=== PATIENT | male | born 1935 | race Caucasian/White ===

== ENCOUNTER 2019-01-28 17:40 | Emergency (ER) | payer MEDICARE ==
[~2019-01-28] VITALS: Ht 188 cm; Wt 74.8 kg
--- OUTSIDE RECORDS SUMMARY | 2019-01-28 17:43 | XMS REPORT | Continuity of Care Document ---
Author Author [facility] Interface Address Unknown Phone Unavailable Problems Problem Status Onset Date Classification Date Reported Comments Source Neuropathy Active Problem 12/27/2018 2.16.840.1.924821.4.391.11.87179 Muscle cramps Active Problem 12/27/2018 2.16.840.1.614417.4.391.11.24419 Hypothyroidism Active Problem 12/27/2018 2.16.840.1.081266.4.391.11.48086 Memory loss Active Problem 12/27/2018 2.16.840.1.672196.4.391.11.23704 Anxiety Active Problem 12/27/2018 2.16.840.1.503845.4.391.11.79750 Myositis Active Problem 12/27/2018 2.16.840.1.723540.4.391.11.14548 Generalized anxiety disorder Active Problem 12/27/2018 2.16.840.1.119168.4.391.11.03143,Charmaine Sutton Benign prostatic hyperplasia with lower urinary tract symptoms Active Problem 12/27/2018 2.16.840.1.915647.4.391.11.31571 Nocturia Active Diagnosis 11/24/2017 2.16.840.1.476032.4.391.11.15666 Mesothelioma Active Problem 12/27/2018 2.16.840.1.027147.4.391.11.38550 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 2.16.840.1.025894.4.391.11.15554 Anorexia Active Problem 12/27/2018 2.16.840.1.696900.4.391.11.49656 Right-sided chest pain Active Diagnosis 08/04/2018 2.16.840.1.549036.4.391.11.95927 Hypoxia Active Diagnosis 01/12/2018 2.16.840.1.024691.4.391.11.57665 Gallstone pancreatitis Active Diagnosis 06/12/2017 2.16.840.1.713285.4.391.11.16380 Chronic constipation Active Diagnosis 05/28/2017 2.16.840.1.189553.4.391.11.49752 Seasonal allergic rhinitis, unspecified trigger Active Diagnosis 01/06/2018 2.16.840.1.244986.4.391.11.57776 Acute respiratory distress Active Diagnosis 01/06/2018 2.16.840.1.540664.4.391.11.57400 Pneumonia of both lower lobes due to infectious organism Active Diagnosis 10/28/2017 2.16.840.1.396512.4.391.11.24956 Acute biliary pancreatitis, unspecified complication status Active Diagnosis 10/28/2017 2.16.840.1.564873.4.391.11.94096 Urinary retention Active Diagnosis 10/28/2017 2.16.840.1.558578.4.391.11.70883 Acute cystitis without hematuria Active Diagnosis 10/28/2017 2.16.840.1.270199.4.391.11.33159 Chronic respiratory failure with hypoxia Active Problem 12/27/2018 2.16.840.1.120009.4.391.11.52022 Loss of weight Active Problem 10/26/2015 Charmaine Sutton Rotator cuff sprain and strain Active Problem 10/26/2015 Charmaine Sutton Muscle weakness Active Problem 10/26/2015 Charmaine Sutton Dementia with Lewy bodies Active Problem 10/26/2015 Charmaine Sutton Anxiety state, unspecified Active Problem 10/26/2015 Charmaine Sutton Mixed hyperlipidemia Active Problem 10/26/2015 Charmaine Sutton Chest pain, other Active Problem 10/26/2015 Charmaine Sutton Neck muscle spasm Active Problem 10/26/2015 Charmaine Sutton Inclusion body myositis Active Problem 10/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 Charmaine Sutton BPH - Hypertrophy of prostate without urinary obstruction and other lower urinary tract symptoms [LUTS] Active Problem 10/26/2015 Charmaine Sutton Diarrhea of presumed infectious origin Active Problem 10/26/2015 Charmaine Sutton Dementia Active Problem 10/26/2015 Charmaine Sutton Malnutrition of moderate degree Active Problem 10/26/2015 Charmaine Sutton Body Mass Index 28.0-28.9, adult Active Problem 10/26/2015 Charmaine Sutton hypothyroidism Active Problem 10/26/2015 Charmaine Sutton Other vitamin B12 deficiency anemia Active Problem 10/26/2015 Charmaine Sutton Allergic rhinitis, cause unspecified Active Problem 10/26/2015 Charmaine Sutton Abdominal pain, left lower quadrant Active Problem 10/26/2015 Charmaine Sutton Generalized anxiety disorder Active Problem 10/26/2015 Charmaine Sutton Infectious colitis, enteritis, and gastroenteritis Active Problem 10/26/2015 Charmaine Sutton Other anxiety states Active Problem 10/26/2015 Charmaine Sutton 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 Charmaine Sutton 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 10/26/2015 Charmaine Sutton Hypothyroid Active Diagnosis 10/26/2015 Charmaine Sutton Dementia Active Diagnosis 10/26/2015 Charmaine Sutton Myositis associated antibody positive Active Diagnosis 10/26/2015 Charmaine Sutton Rotator cuff syndrome of shoulder and allied disorders Active Problem 10/26/2015 Charmaine Sutton Neck pain Active Problem 10/26/2015 Charmaine Sutton Environmental allergies Active Problem 12/27/2018 2.16.840.1.864113.4.391.11.24351 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, 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 Active Problem 12/27/2018 2.16.840.1.983868.4.391.11.49540 Falls frequently Active Problem 12/27/2018 2.16.840.1.235059.4.391.11.72490 Mixed stress and urge urinary incontinence Active Problem 12/27/2018 2.16.840.1.842508.4.391.11.86783 Muscle weakness Active Diagnosis 10/15/2018 2.16.840.1.555298.4.391.11.13922 Injury of right shoulder, initial encounter Active Diagnosis 11/18/2018 2.16.840.1.658367.4.391.11.64252 Myositis of left foot, unspecified myositis type Active Diagnosis 10/22/2016 2.16.840.1.240134.4.391.11.03232 Malignant pleural mesothelioma Active Problem 12/27/2018 2.16.840.1.897663.4.391.11.16501 Pre-syncope Active Diagnosis 08/13/2018 2.16.840.1.055648.4.391.11.85237 Fall, initial encounter Active Diagnosis 07/27/2018 2.16.840.1.441130.4.391.11.37060 Medications Medication Details Route Status Patient Instructions Ordering Provider Order Date Source Alprazolam 1 tablet as needed Orally Active 1 MG Orally four times a day (qid) Dereck 11/28/2018 2.16.840.1.202836.4.391.11.84970 Montelukast Sodium 1 tab at bedtime Orally Active 10 mg Orally Once a day Dereck 08/01/2018 2.16.840.1.593229.4.391.11.00109 Tylenol Extra Strength 1 tablet Orally Active 500 mg Orally three times a day (tid) as needed (prn) [facility] 05/22/2018 2.16.840.1.313026.4.391.11.30509 Myrbetriq 1 tablet Orally Active 25 MG Orally Once a day Dereck 05/13/2018 2.16.840.1.600116.4.391.11.38243 Cipro 1 tablet Orally Active 500 mg Orally twice a day (bid) Dereck 01/21/2018 2.16.840.1.363391.4.391.11.01305 Tylenol/Codeine #3 1 tablet as needed Orally Active 300-30 MG Orally every 6 hrs Dereck 01/05/2018 2.16.840.1.635811.4.391.11.79290 Megace Oral 1 ml Orally Active 40 MG/ML Orally Twice a day [facility] 01/05/2018 2.16.840.1.390143.4.391.11.26856 Carisoprodol 1/2 half tablet Orally Active 350 MG Orally as needed three times a day [facility] 11/12/2017 2.16.840.1.106184.4.391.11.16694 Flomax 2 capsule Orally Active 0.4 MG Orally Once a day [facility] 09/13/2017 2.16.840.1.825756.4.391.68 Ciprofloxacin HCl 1 tablet Orally Active 500 mg Orally Twice a day Dereck 09/13/2017 2.16.840.1.942266.4.391. Zithromax Z-Rodrigo 2 tablets on the first day, then 1 tablet daily for 4 days Orally Active 250 MG Orally Once a day [facility] 09/01/2017 2.16.840.1.765579.4.391.68 Carisoprodol 1/2 tablet as needed Orally Active 350 MG Orally three times a day [facility] 06/08/2017 2.16.840.1.757566.4.391. Gabapentin 1 capsule Orally Active 300 MG Orally twice a day (bid) [facility] 10/08/2016 2.16.840.1.777292.4.391.68 Carisoprodol 1/2 half tablet Orally Active 350 MG Orally three times a day (tid) [facility] 04/18/2016 Charmaine Sutton Carisoprodol 1/2 half tablet Orally Active 350 MG Orally three times a day (tid) [facility] 10/15/2015 Charmaine Sutton Aricept 1 tablet at bedtime Orally Active 10 mg Orally Once a day [facility] 04/18/2015 Charmaine Sutton Omeprazole-Sodium Bicarbonate 1 capsule on an empty stomach Orally Active 20-1100 MG Orally Once a day [facility] 11/08/2014 Charmaine Sutton Levothyroxine Sodium 1 tablet on an empty stomach in the morning Orally Active 25 MCG Orally Once a day [facility] 02/15/2014 Charmaine Sutton Cyanocobalamin 1 ml intramuscularly Active 1000 MCG/ML intramuscularly monthly [facility] 02/15/2014 Charmaine Sutton Alprazolam 1 tablet BY MOUTH Active 1 MG BY MOUTH FOUR TIMES A DAY [facility] 840.1.896656.4.391.68,Charmaine Sutton Alprazolam 1 tablet BY MOUTH Active 1 MG BY MOUTH FOUR TIMES A DAY [facility] 840.1.116721.4.391.68 Levothyroxine Sodium 1 tablet by mouth Active 25 MCG by mouth daily Dereck 2.16.840.1.663633.4.391. Carisoprodol TAKE 1/2 TABLET BY MOUTH THREE TIMES DAILY NEEDED Orally Active 350 Orally twice a day (bid) Dereck 2.16.840.1.970943.4.391.Charmaine Tylenol Extra Strength 1 tablet Orally Active 500 MG Orally three times a day (tid) as needed (prn) [facility] 2.16.840.1.051220.4.391.. Donepezil Hydrochloride 1 tablet at bedtime by mouth Active 10 by mouth hs Dereck 2.16.840.1.011586.4.391. Levothyroxine Sodium 1 tablet by mouth Active 25 MCG by mouth daily Dereck 2.16840.1.463818.4.391. Donepezil Hydrochloride TAKE 1 TABLET BY MOUTH EVERY NIGHT AT BEDTIME NA Active 10 Dereck 2.16.840.1.717611.4.391. Tylenol Extra Strength 1 tablet Orally Active 500 MG Orally three times a day (tid) as needed (prn) [facility] 2.16.840.1.985739.4.391. Aricept 1 TABLET AT BEDTIME BY MOUTH NA Active 10 MG Dereck 2.16.840.1.515259.4.391. Alprazolam 1 tablet Orally Active 1 Orally four times a day Dereck 2.16.840.1.834407.4.391.Charmaine Aricept 1 tablet Orally Active 5 MG Orally Once a day Lesley Sutton Vitamin B 12 Unknown Orally Active 100 MCG Orally Lesley Sutton Tylenol 1 tab Orally Active 500 MG/15ML Orally as needed (prn) Lesley Sutton Aleve 1 tablet Orally Active 220 MG Orally one in the morning and one in the evening. Lesley Sutton Levothyroxine Sodium 1 tablet BY MOUTH Active 25 MCG BY MOUTH ONCE A DAY IN THE MORNING Dereck 2.16.840.1.331203.4.391.11.27279 Aricept 1 tablet BY MOUTH Active 10 MG BY MOUTH AT BEDTIME Dereck 2.16.840.1.220621.4.391.11.18926 Carisoprodol 1 tablet as needed Orally Active 250 MG Orally Four times a day Dereck 2.16.840.1.723275.4.391.11.53624,Charmaine Sutton Alprazolam 1 tablet Orally Active 1 Milligram Orally four times a day Lesley Sutton aspirin 81 mg tablet not defined NA Active Dereck 2.16.840.1.630883.4.391.11.53657 folic acid 1 mg tablet 1 tablet by mouth Active by mouth daily Dereck 2.16840.1.924106.4.391.. Acetaminophen-Codeine #3 1 tablet as needed Orally Active 0 Orally every 6 hrs Dereck 2.16.840.1.183692.4.391..73682 Flomax 2 capsule Orally Active 0.4 MG Orally Once a day Dereck 2.16.840.1.560480.4.391.11. Carisoprodol 1/2 tablet as needed Orally Active 350 MG Orally three times a day Dereck 2.16840.1.867451.4.391.. folic acid 1 mg tablet 1 tablet by mouth Active 10 mg by mouth daily Dereck 2.16.840.1.347668.4.391.11. Allergies, Adverse Reactions, Alerts Substance Category Reaction Severity Reaction type Status Date Reported Comments Source Codeine Adverse Reaction Info Not Available Adverse Reaction Active 10/21/2015 Charmaine Sutton proscar Adverse Reaction ankle pain Adverse Reaction Active 10/21/2015 Charmaine Sutton Sudafed Adverse Reaction Info Not Available Adverse Reaction Active 11/02/2018 2.16.840.1.116358.4.391.. Proscar Adverse Reaction Info Not Available Adverse Reaction Active 11/02/2018 2.16.840.1.080732.4.391.. Hydrocodone Bitartrate Adverse Reaction Info Not Available Adverse Reaction Active 11/02/2018 2.16.840.1.282105.4.391.11.85554 Codeine Sulfate Adverse Reaction Info Not Available Adverse Reaction Active 11/02/2018 2.16.840.1.811921.4.391.11.31462 Cipro Adverse Reaction Info Not Available Adverse Reaction Active 11/02/2018 2.16.840.1.223214.4.391.11.94599 Antihistamine Adverse Reaction Info Not Available Adverse Reaction Active 11/02/2018 2.16.840.1.867755.4.391.11.81242 Aleve Adverse Reaction Info Not Available Adverse Reaction Active 11/02/2018 2.16.840.1.226400.4.391.11.33492 Immunizations Immunization Date Given Site Status Last Updated Comments Source Results Order Name Results Value Reference Range Date Interpretation Comments Source Vital Signs Vital Sign Value Date Comments Source Weight 168.1 11/02/2018 2.16.840.1.255124.4.391.11.21972 Height 71.5 11/02/2018 2.16.840.1.005112.4.391.11.85323 Temperature Oral (F) 97.1 F 11/02/2018 2.16.840.1.996777.4.391.11.03111 Heart Rate 77 11/02/2018 2.16.840.1.520559.4.391.11.93215 Diastolic (mm Hg) 72 11/02/2018 2.16.840.1.365576.4.391.11.33861 Systolic (mm Hg) 132 11/02/2018 2.16.840.1.370655.4.391.11.86503 Weight 161.4 09/05/2018 2.16.840.1.478104.4.391.11.42072 Height 71.5 09/05/2018 2.16.840.1.743522.4.391.11.47029 Temperature Oral (F) 96.5 F 09/05/2018 2.16.840.1.106686.4.391.11.97080 Heart Rate 57 09/05/2018 2.16.840.1.393083.4.391.11.47956 Diastolic (mm Hg) 98 09/05/2018 2.16.840.1.126319.4.391.11.63842 Systolic (mm Hg) 128 09/05/2018 2.16.840.1.310140.4.391.11.23010 Weight 157.4 08/01/2018 2.16.840.1.592164.4.391.11.25623 Height 71.5 08/01/2018 2.16.840.1.475921.4.391.11.75657 Temperature Oral (F) 97.6 F 08/01/2018 2.16.840.1.880400.4.391.11.62100 Heart Rate 73 08/01/2018 2.16.840.1.717526.4.391.11.02257 Diastolic (mm Hg) 57 08/01/2018 2.16.840.1.893266.4.391.11.22483 Systolic (mm Hg) 94 08/01/2018 2.16.840.1.507676.4.391.11.07473 Weight 165.3 05/30/2018 2.16.840.1.055125.4.391.11.88018 Height 71.5 05/30/2018 2.16.840.1.454039.4.391.11.28229 Temperature Oral (F) 97.3 F 05/30/2018 2.16.840.1.886610.4.391.11.07481 Heart Rate 74 05/30/2018 2.16.840.1.347987.4.391.11.47936 Diastolic (mm Hg) 58 05/30/2018 2.16.840.1.708469.4.391.11.92101 Systolic (mm Hg) 100 05/30/2018 2.16.840.1.323923.4.391.11.72571 Weight 164.4 04/28/2018 2.16.840.1.417219.4.391.11.05463 Height 71.5 04/28/2018 2.16.840.1.952939.4.391.11.40449 Temperature Oral (F) 98.7 F 04/28/2018 2.16.840.1.650460.4.391.11.05229 Heart Rate 65 04/28/2018 2.16.840.1.289327.4.391.11.39219 Diastolic (mm Hg) 47 04/28/2018 2.16.840.1.265301.4.391.11.64605 Systolic (mm Hg) 109 04/28/2018 2.16.840.1.359029.4.391.11.85909 Heart Rate 79 01/05/2018 2.16.840.1.672382.4.391.11.70362 Diastolic (mm Hg) 58 01/05/2018 2.16.840.1.600447.4.391.11.67449 Systolic (mm Hg) 107 01/05/2018 2.16.840.1.770149.4.391.11.42932 Temperature Oral (F) 98.7 F 01/05/2018 2.16.840.1.718904.4.391.11.79186 Weight 196.1 12/21/2017 2.16.840.1.533018.4.391.11.72935 Height 71.5 12/21/2017 2.16.840.1.424886.4.391.11.05292 Temperature Oral (F) 98.1 F 12/21/2017 2.16.840.1.136829.4.391.11.40878 Heart Rate 59 12/21/2017 2.16.840.1.205970.4.391.11.32670 Diastolic (mm Hg) 58 12/21/2017 2.16.840.1.050973.4.391.11.03942 Systolic (mm Hg) 121 12/21/2017 2.16.840.1.169829.4.391.11.13725 Weight 196.1 09/27/2017 2.16.840.1.458289.4.391.11.72397 Height 71.5 09/27/2017 2.16.840.1.717663.4.391.11.79998 Temperature Oral (F) 95.5 F 09/27/2017 2.16.840.1.013493.4.391.11.88888 Heart Rate 67 09/27/2017 2.16.840.1.463757.4.391.11.48372 Diastolic (mm Hg) 66 09/27/2017 2.16.840.1.544917.4.391.11.76168 Systolic (mm Hg) 140 09/27/2017 2.16.840.1.523116.4.391.11.72088 Weight 196.1 09/13/2017 2.16.840.1.457654.4.391.11.79818 Height 71.5 09/13/2017 2.16.840.1.108085.4.391.11.03680 Temperature Oral (F) 97.8 F 09/13/2017 2.16.840.1.724781.4.391.11.67097 Heart Rate 63 09/13/2017 2.16.840.1.777727.4.391.11.95517 Diastolic (mm Hg) 58 09/13/2017 2.16.840.1.426189.4.391.11.54984 Systolic (mm Hg) 119 09/13/2017 2.16.840.1.688191.4.391.11.46764 Weight 200.9 06/08/2017 2.16.840.1.757570.4.391.11.37314 Height 71.5 06/08/2017 2.16.840.1.777971.4.391.11.99197 Temperature Oral (F) 98.7 F 06/08/2017 2.16.840.1.793423.4.391.11.55182 Heart Rate 60 06/08/2017 2.16.840.1.369624.4.391.11.39952 Diastolic (mm Hg) 75 06/08/2017 2.16.840.1.328370.4.391.11.80663 Systolic (mm Hg) 135 06/08/2017 2.16.840.1.789983.4.391.11.06014 Weight 210 04/13/2017 2.16.840.1.592748.4.391.11.54681 Height 71.5 04/13/2017 2.16.840.1.894145.4.391.11.35033 Temperature Oral (F) 98.1 F 04/13/2017 2.16.840.1.131548.4.391.11.48573 Heart Rate 67 04/13/2017 2.16.840.1.346676.4.391.11.38506 Diastolic (mm Hg) 62 04/13/2017 2.16.840.1.666927.4.391.11.84079 Systolic (mm Hg) 146 04/13/2017 2.16.840.1.350175.4.391.11.47983 Weight 224 11/10/2016 2.16.840.1.417716.4.391.11.55038 Height 71.5 11/10/2016 2.16.840.1.867731.4.391.11.63952 Temperature Oral (F) 98.0 F 11/10/2016 2.16.840.1.653424.4.391.11.86787 Heart Rate 60 11/10/2016 2.16.840.1.026550.4.391.11.06631 Diastolic (mm Hg) 54 11/10/2016 2.16.840.1.987482.4.391.11.46372 Systolic (mm Hg) 127 11/10/2016 2.16.840.1.044303.4.391.11.12796 Weight 224.5 10/08/2016 2.16.840.1.285003.4.391.11.73724 Height 71.5 10/08/2016 2.16.840.1.108265.4.391.11.93717 Temperature Oral (F) 98.0 F 10/08/2016 2.16.840.1.313598.4.391.11.36507 Heart Rate 56 10/08/2016 2.16.840.1.000089.4.391.11.86841 Diastolic (mm Hg) 61 10/08/2016 2.16.840.1.527481.4.391.11.45977 Systolic (mm Hg) 118 10/08/2016 2.16.840.1.497774.4.391.11.87902 Weight 217.9 11/21/2015 2.16.840.1.769462.4.391.11.87081 Height 71.5 11/21/2015 2.16.840.1.884669.4.391.11.10979 Temperature Oral (F) 98.1 F 11/21/2015 2.16.840.1.937381.4.391.11.93266 Heart Rate 51 11/21/2015 2.16.840.1.606328.4.391.11.18204 Diastolic (mm Hg) 61 11/21/2015 2.16.840.1.696454.4.391.11.57280 Systolic (mm Hg) 134 11/21/2015 2.16.840.1.191448.4.391.11.61278 Weight 220.0 10/21/2015 Kaisen Fang Height 71.5 10/21/2015 Kaisen Fang Temperature Oral (F) 98.5 F 10/21/2015 Kaisen Fang Heart Rate 59 10/21/2015 Kaisen Fang Diastolic (mm Hg) 68 10/21/2015 Kaisen Fang Systolic (mm Hg) 129 10/21/2015 Kaisen Fang Respitory Rate 20 10/21/2015 Kaisen Fang Weight 217.0 07/29/2015 Kaisen Fang Height 71.5 07/29/2015 Kaisen Fang Temperature Oral (F) 98.6 F 07/29/2015 Kaisen Fang Heart Rate 65 07/29/2015 Kaisen Fang Diastolic (mm Hg) 71 07/29/2015 Kaisen Fang Systolic (mm Hg) 134 07/29/2015 Kaisen Fang Respitory Rate 20 07/29/2015 Kaisen Fang Weight 209.7 12/11/2014 Kaisen Fang Height 71.5 12/11/2014 Kaisen Fang Temperature Oral (F) 98.5 F 12/11/2014 Kaisen Fang Heart Rate 82 12/11/2014 Kaisen Fang Diastolic (mm Hg) 62 12/11/2014 Kaisen Fang Systolic (mm Hg) 116 12/11/2014 Kaisen Fang Respitory Rate 20 12/11/2014 Kaisen Fang Weight 212.8 08/08/2014 Kaisen Fang Height 71.5 08/08/2014 Kaisen Fang Temperature Oral (F) 98.6 F 08/08/2014 Kaisen Fang Heart Rate 61 08/08/2014 Kaisen Fang Diastolic (mm Hg) 67 08/08/2014 Kaisen Fang Systolic (mm Hg) 110 08/08/2014 Kaisen Fang Respitory Rate 20 08/08/2014 Kaisen Fang Weight 209.6 02/15/2014 Kaisen Fang Height 71.5 02/15/2014 Kaisen Fang Temperature Oral (F) 98.5 F 02/15/2014 Kaisen Fang Heart Rate 81 02/15/2014 Kaisen Fang Diastolic (mm Hg) 80 02/15/2014 Kaisen Fang Systolic (mm Hg) 130 02/15/2014 Kaisen Fang Respitory Rate 20 02/15/2014 Kaisen Fang Weight 216.3 07/06/2013 Kaisen Fang Height 71.5 07/06/2013 Kaisen Fang Temperature Oral (F) 98.3 F 07/06/2013 Kaisen Fang Heart Rate 57 07/06/2013 Kaisen Fang Diastolic (mm Hg) 77 07/06/2013 Kaisen Fang Systolic (mm Hg) 133 07/06/2013 Kaisen Fang Encounters Location Location Details Encounter Type Encounter Number Reason For Visit Attending Provider ADM Date DC Date Status Source Charmaine Sutton MD Unknown [id number] 10/10/2013 10/10/2013 Charmaine Sutton MD Unknown [id number] 10/10/2013 10/10/2013 2.16.840.1.704338.4.391.11.05716 Charmaine Sutton MD Unknown [id number] 10/10/2013 10/10/2013 2.16.840.1.431302.4.391..48472 Charmaine Sutton MD Unknown [id number] 10/10/2013 10/10/2013 Charmaine Sutton MD Unknown [id number] 10/10/2013 10/10/2013 Charmaine Sutton MD Unknown [id number] 10/10/2013 10/10/2013 Charmaine Sutton MD Unknown [id number] 10/10/2013 10/10/2013 Charmaine Sutton MD Unknown [id number] 10/10/2013 10/10/2013 Charmaine Sutton MD Unknown [id number] 10/10/2013 10/10/2013 2.16.840.1.673684.4.391.. Charmaine Sutton MD Unknown [id number] 10/10/2013 10/10/2013 2.16.840.1.063581.4.391.. Charmaine Sutton MD Unknown [id number] 10/10/2013 10/10/2013 2.16.840.1.535880.4.391.. Charmaine Sutton MD Unknown [id number] 10/10/2013 10/10/2013 2.16.840.1.214400.4.391.. Charmaine Sutton MD Follow-up for mutiple problems [id number] 02/15/2014 02/15/2014 Charmaine Sutton MD Follow-up for mutiple problems [id number] 02/15/2014 02/15/2014 2.16.840.1.263291.4.391.11.66217 Charmaine Sutton MD Follow-up for mutiple problems [id number] 02/15/2014 02/15/2014 2.16.840.1.526685.4.391..67982 Charmaine Sutton MD Follow-up for mutiple problems [id number] 02/15/2014 02/15/2014 Charmaine Sutton MD Follow-up for mutiple problems [id number] 02/15/2014 02/15/2014 Charmaine Sutton MD Follow-up for mutiple problems [id number] 02/15/2014 02/15/2014 Charmaine Sutton MD Follow-up for mutiple problems [id number] 02/15/2014 02/15/2014 Charmaine Sutton MD Follow-up for mutiple problems [id number] 02/15/2014 02/15/2014 2.16.840.1.827230.4.391..05264 Charmaine Sutton MD Follow-up for mutiple problems [id number] 02/15/2014 02/15/2014 2.16.840.1.306826.4.391.11.67493 Charmaine Sutton MD Follow-up for mutiple problems [id number] 02/15/2014 02/15/2014 2.16.840.1.083830.4.391.11.63049 Charmaine Sutton MD Follow-up for mutiple problems [id number] 02/15/2014 02/15/2014 2.16.840.1.571330.4.391.11.89497 Charmaine Sutton MD Follow-up for mutiple problems [id number] 05/16/2014 05/16/2014 Charmaine Sutton MD Follow-up for mutiple problems [id number] 05/16/2014 05/16/2014 2.16.840.1.820773.4.391.11.98781 Charmaine Sutton MD Follow-up for mutiple problems [id number] 05/16/2014 05/16/2014 2.16.840.1.776772.4.391.11.41679 Charmaine Sutton MD Follow-up for mutiple problems [id number] 05/16/2014 05/16/2014 Charmaine Sutton MD Follow-up for mutiple problems [id number] 05/16/2014 05/16/2014 Charmaine Sutton MD Follow-up for mutiple problems [id number] 05/16/2014 05/16/2014 Charmaine Sutton MD Follow-up for mutiple problems [id number] 05/16/2014 05/16/2014 2.16.840.1.542361.4.391.11.74174 Charmaine Sutton MD Follow-up for mutiple problems [id number] 05/16/2014 05/16/2014 2.16.840.1.698302.4.391.11.45424 Charmaine Sutton MD Follow-up for mutiple problems [id number] 05/16/2014 05/16/2014 2.16.840.1.784255.4.391.11.89859 Charmaine Sutton MD Follow-up for mutiple problems [id number] 05/16/2014 05/16/2014 2.16.840.1.242863.4.391.11.82584 Charmaine Sutton MD Follow-up for mutiple problems [id number] 08/08/2014 08/08/2014 Charmaine Sutton MD Follow-up for mutiple problems [id number] 08/08/2014 08/08/2014 2.16.840.1.632951.4.391.11.49675 Charmaine Sutton MD Follow-up for mutiple problems [id number] 08/08/2014 08/08/2014 2.16.840.1.862974.4.391.11.53515 Charmaine Sutton MD Follow-up for mutiple problems [id number] 08/08/2014 08/08/2014 Charmaine Sutton MD Follow-up for mutiple problems [id number] 08/08/2014 08/08/2014 Charmaine Sutton MD Follow-up for mutiple problems [id number] 08/08/2014 08/08/2014 Charmaine Sutton MD Follow-up for mutiple problems [id number] 08/08/2014 08/08/2014 2.16.840.1.678907.4.391. Charmaine Sutton MD Follow-up for mutiple problems [id number] 08/08/2014 08/08/2014 2.16.840.1.451982.4.391. Charmaine Sutton MD Follow-up for mutiple problems [id number] 08/08/2014 08/08/2014 2.16.840.1.741029.4.391. Charmaine Sutton MD Follow-up for mutiple problems [id number] 08/08/2014 08/08/2014 2.16.840.1.419716.4.391. Charmaine Sutton MD Follow-up for mutiple problems [id number] 11/08/2014 11/08/2014 Charmaine Sutton MD Follow-up for mutiple problems [id number] 11/08/2014 11/08/2014 2.16.840.1.618145.4.391. Charmaine Sutton MD Follow-up for mutiple problems [id number] 11/08/2014 11/08/2014 2.16.840.1.460856.4.391..43198 Charmaine Sutton MD Follow-up for mutiple problems [id number] 11/08/2014 11/08/2014 Charmaine Sutton MD Follow-up for mutiple problems [id number] 11/08/2014 11/08/2014 Charmaine Sutton MD Follow-up for mutiple problems [id number] 11/08/2014 11/08/2014 2.16.840.1.549200.4.391..60167 Charmaine Sutton MD Follow-up for mutiple problems [id number] 11/08/2014 11/08/2014 2.16.840.1.699554.4.391..21628 Charmaine Sutton MD Follow-up for mutiple problems [id number] 11/08/2014 11/08/2014 2.16.840.1.937817.4.391. Charmaine Sutton MD Follow-up for mutiple problems [id number] 11/08/2014 11/08/2014 2.16.840.1.344581.4.391..86764 Charmaine Sutton MD Echo, Carotid, Lower Dopp. [id number] 11/15/2014 11/15/2014 Charmaine Sutton MD Echo, Carotid, Lower Dopp. [id number] 11/15/2014 11/15/2014 2.16.840.1.291127.4.391. Charmaine Sutton MD Echo, Carotid, Lower Dopp. [id number] 11/15/2014 11/15/2014 2.16.840.1.067481.4.391. Charmaine Sutton MD Echo, Carotid, Lower Dopp. [id number] 11/15/2014 11/15/2014 Charmaine Sutton MD Echo, Carotid, Lower Dopp. [id number] 11/15/2014 11/15/2014 Charmaine Sutton MD Echo, Carotid, Lower Dopp. [id number] 11/15/2014 11/15/2014 2.16.840.1.343848.4.391. Charmaine Sutton MD Echo, Carotid, Lower Dopp. [id number] 11/15/2014 11/15/2014 2.16.840.1.367266.4.391. Charmaine Sutton MD Echo, Carotid, Lower Dopp. [id number] 11/15/2014 11/15/2014 2.16.840.1.609672.4.391. Charmaine Sutton MD Echo, Carotid, Lower Dopp. [id number] 11/15/2014 11/15/2014 2.16.840.1.504272.4.391.. Charmaine Sutton MD Follow-up for mutiple problems [id number] 12/11/2014 12/11/2014 Charmaine Sutton MD Follow-up for mutiple problems [id number] 12/11/2014 12/11/2014 2.16.840.1.712396.4.391..51387 Charmaine Sutton MD Follow-up for mutiple problems [id number] 12/11/2014 12/11/2014 2.16.840.1.888338.4.391..50010 Charmaine Sutton MD Follow-up for mutiple problems [id number] 12/11/2014 12/11/2014 Charmaine Sutton MD Follow-up for mutiple problems [id number] 12/11/2014 12/11/2014 Charmaine Sutton MD Follow-up for mutiple problems [id number] 12/11/2014 12/11/2014 2.16.840.1.768700.4.391..78295 Charmaine Sutton MD Follow-up for mutiple problems [id number] 12/11/2014 12/11/2014 2.16.840.1.047631.4.391..02327 Charmaine Sutton MD Follow-up for mutiple problems [id number] 12/11/2014 12/11/2014 2.16.840.1.109826.4.391..23188 Charmaine Sutton MD Follow-up for mutiple problems [id number] 12/11/2014 12/11/2014 2.16.840.1.551019.4.391..71050 Charmaine Sutton MD Follow-up for mutiple problems [id number] 04/18/2015 04/18/2015 2.16.840.1.654702.4.391. Charmaine Sutton MD Follow-up for mutiple problems [id number] 04/18/2015 04/18/2015 2.16.840.1.864156.4.391. Charmaine Sutton MD Follow-up for mutiple problems [id number] 04/18/2015 04/18/2015 Charmaine Sutton MD Follow-up for mutiple problems [id number] 04/18/2015 04/18/2015 Charmaine Sutton MD Follow-up for mutiple problems [id number] 04/18/2015 04/18/2015 2.16.840.1.551922.4.391. Charmaine Sutton MD Follow-up for mutiple problems [id number] 04/18/2015 04/18/2015 2.16.840.1.482301.4.391.. Charmaine Sutton MD Follow-up for mutiple problems [id number] 04/18/2015 04/18/2015 2.16.840.1.131218.4.391. Charmaine Sutton MD Follow-up for mutiple problems [id number] 04/18/2015 04/18/2015 2.16.840.1.023424.4.391. Charmaine Sutton MD Follow-up for mutiple problems [id number] 07/29/2015 07/29/2015 2.16.840.1.753864.4.391..48476 Charmaine Sutton MD Follow-up for mutiple problems [id number] 07/29/2015 07/29/2015 2.16.840.1.690582.4.391..64704 Charmaine Sutton MD Follow-up for mutiple problems [id number] 07/29/2015 07/29/2015 Charmaine Sutton MD Follow-up for mutiple problems [id number] 07/29/2015 07/29/2015 Charmaine Sutton MD Follow-up for mutiple problems [id number] 07/29/2015 07/29/2015 2.16.840.1.411154.4.391..05982 Charmaine Sutton MD Follow-up for mutiple problems [id number] 07/29/2015 07/29/2015 2.16.840.1.770297.4.391..65526 Charmaine Sutton MD Follow-up for mutiple problems [id number] 07/29/2015 07/29/2015 2.16.840.1.728303.4.391..98881 Charmaine Sutton MD Follow-up for mutiple problems [id number] 07/29/2015 07/29/2015 2.16.840.1.328632.4.391.68 Charmaine Sutton MD Follow-up for mutiple problems [id number] 10/21/2015 10/21/2015 2.16.840.1.340198.4.391..58806 Charmaine Sutton MD Follow-up for mutiple problems [id number] 10/21/2015 10/21/2015 2.16.840.1.534661.4.391..84355 Charmaine Sutton MD Follow-up for mutiple problems [id number] 10/21/2015 10/21/2015 Charmaine Sutton MD Follow-up for mutiple problems [id number] 10/21/2015 10/21/2015 2.16.840.1.140611.4.391..73123 Charmaine Sutton MD Follow-up for mutiple problems [id number] 10/21/2015 10/21/2015 2.16.840.1.532486.4.391..03883 Charmaine Sutton MD Follow-up for mutiple problems [id number] 10/21/2015 10/21/2015 2.16.840.1.069395.4.391..59234 Charmaine Sutton MD Follow-up for mutiple problems [id number] 10/21/2015 10/21/2015 2.16.840.1.416397.4.391..91928 [facility] Unknown [id number] 11/21/2015 11/21/2015 2.16.840.1.893388.4.391.11.44536 [facility] Unknown [id number] 11/21/2015 11/21/2015 2.16.840.1.933231.4.391.11.28928 [facility] Unknown [id number] 11/21/2015 11/21/2015 2.16.840.1.520119.4.391.11.71382 [facility] Unknown [id number] 11/21/2015 11/21/2015 2.16.840.1.524918.4.391.11.09394 [facility] Unknown [id number] 11/21/2015 11/21/2015 2.16.840.1.725635.4.391.11.89373 [facility] Unknown [id number] 11/21/2015 11/21/2015 2.16.840.1.811273.4.391.11.31789 [facility] Unknown [id number] 01/17/2016 01/17/2016 2.16.840.1.563120.4.391.11.03497 [facility] Unknown [id number] 01/17/2016 01/17/2016 2.16.840.1.182213.4.391.11.16131 [facility] Unknown [id number] 01/17/2016 01/17/2016 2.16.840.1.130646.4.391.11.67216 [facility] Unknown [id number] 01/17/2016 01/17/2016 2.16.840.1.423434.4.391.11.32267 [facility] Unknown [id number] 01/17/2016 01/17/2016 2.16.840.1.361337.4.391.11.89175 [facility] Unknown [id number] 07/21/2016 07/21/2016 2.16.840.1.470375.4.391.11.15945 [facility] Unknown [id number] 07/21/2016 07/21/2016 2.16.840.1.540027.4.391.11.37662 [facility] Unknown [id number] 07/21/2016 07/21/2016 2.16.840.1.773133.4.391.11.60006 [facility] Unknown [id number] 07/21/2016 07/21/2016 2.16.840.1.934218.4.391.11.38859 [facility] Unknown [id number] 08/25/2016 08/25/2016 2.16.840.1.150081.4.391.11.07173 [facility] Unknown [id number] 08/25/2016 08/25/2016 2.16.840.1.262679.4.391.11.95606 [facility] Unknown [id number] 08/25/2016 08/25/2016 2.16.840.1.674227.4.391.11.32422 [facility] Unknown [id number] 09/16/2016 09/16/2016 2.16.840.1.543050.4.391.11.78680 [facility] Unknown [id number] 09/16/2016 09/16/2016 2.16.840.1.458716.4.391.11.97782 [facility] Follow- Up [id number] 10/08/2016 10/08/2016 2.16.840.1.763587.4.391.11.28957 Procedures Procedure Code Date Perfomer Comments Source
--- OUTSIDE RECORDS SUMMARY | 2019-01-28 17:44 | XMS REPORT ---
Author Author Mahendra Harden Organization [employer] Address Unknown Phone Unavailable Care Team Providers Care Corn Detasseler Name Role Phone Mahendra Hadren CP Unavailable Allergies No Known Allergies Problems Problem Type Condition Code Onset Dates Condition Status Problem Memory loss R41.3 Active Assessment Generalized anxiety disorder F41.1 Active Problem Generalized anxiety disorder F41.1 Active Problem Hypothyroidism (acquired) E03.9 Active Problem Benign prostatic hyperplasia with lower urinary tract symptoms N40.1 Active Problem Myositis M60.9 Active Problem Anxiety F41.9 Active Problem Neuropathy G62.9 Active Problem Muscle cramps R25.2 Active Medications Medication Code System Code Instructions Start Date End Date Status Dosage Alprazolam [facility] [address]-72 1 MG BY MOUTH FOUR TIMES A DAY Active 1 tablet Results No Known Results Summary Purpose [employer] Submission
--- OUTSIDE RECORDS SUMMARY | 2019-01-28 17:44 | XMS REPORT ---
Author Author Mahendra Harden Organization [employer] Address Unknown Phone Unavailable Care Team Providers Care Financial Representative Name Role Phone Mahendra Harden CP Unavailable Allergies No Known Allergies Problems Problem Type Condition Code Onset Dates Condition Status Problem Myositis M60.9 Active Assessment Nocturia R35.1 Active Problem Benign prostatic hyperplasia with lower urinary tract symptoms N40.1 Active Problem Hypothyroidism (acquired) E03.9 Active Problem Generalized anxiety disorder F41.1 Active Problem Memory loss R41.3 Active Problem Anxiety F41.9 Active Problem Neuropathy G62.9 Active Problem Muscle cramps R25.2 Active Medications Medication Code System Code Instructions Start Date End Date Status Dosage Alprazolam [facility] 75249533265 1 MG BY MOUTH FOUR TIMES A DAY Active 1 tablet Results No Known Results Summary Purpose [employer] Submission
--- OUTSIDE RECORDS SUMMARY | 2019-01-28 17:44 | XMS REPORT ---
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 Problem Anorexia R63.0 Active Problem Hypothyroidism (acquired) E03.9 Active Problem Neuropathy G62.9 Active Problem Generalized anxiety disorder F41.1 Active Problem Benign prostatic hyperplasia with lower urinary tract symptoms N40.1 Active Medications Medication Code System Code Instructions Start Date End Date Status Dosage Tylenol/Codeine #3 [facility] 65967240594 300-30 MG Orally every 6 hrs January 05, 2018 Active 1 tablet as needed Carisoprodol [facility] 68271536975 350 Active TAKE 1/2 TABLET BY MOUTH THREE TIMES DAILY NEEDED Results No Known Results Summary Purpose [employer] Submission
--- OUTSIDE RECORDS SUMMARY | 2019-01-28 17:44 | XMS REPORT ---
Author Author Mahendra Harden Organization [employer] Address Unknown Phone Unavailable Care Team Providers Care Stocklayer Name Role Phone Mahendra Harden CP Unavailable Allergies, Adverse Reactions, Alerts Substance Reaction Event Type Sudafed Info Not Available Drug Allergy Proscar Info Not Available Drug Allergy Hydrocodone Bitartrate Info Not Available Drug Allergy Codeine Sulfate Info Not Available Drug Allergy Cipro Info Not Available Drug Allergy Antihistamine Info Not Available Drug Allergy Aleve Info Not Available Drug Allergy Problems Problem Type Condition Code Onset Dates Condition Status Assessment Anxiety F41.9 Active Problem Memory loss R41.3 Active Assessment Gallstone pancreatitis K85.10 Active Problem Generalized anxiety disorder F41.1 Active Problem Hypothyroidism (acquired) E03.9 Active Problem Benign prostatic hyperplasia with lower urinary tract symptoms N40.1 Active Problem Myositis M60.9 Active Problem Anxiety F41.9 Active Problem Neuropathy G62.9 Active Problem Muscle cramps R25.2 Active Assessment Memory loss R41.3 Active Assessment Myositis M60.9 Active Assessment Hypothyroidism (acquired) E03.9 Active Medications Medication Code System Code Instructions Start Date End Date Status Dosage Carisoprodol [facility] [address]-16 350 MG Orally three times a day Jun 08, 2017 Active 1/2 tablet as needed Donepezil Hydrochloride [facility] 82098724035 10 by mouth Once a day Active 1 tablet at bedtime Alprazolam [facility] [address]-22 1 MG BY MOUTH FOUR TIMES A DAY Active 1 tablet Levothyroxine Sodium [facility] 34267409989 25 MCG by mouth daily Active 1 tablet Tylenol Extra Strength [facility] [address]-41 500 MG Orally three times a day (tid) as needed (prn) Active 1 tablet Vital Signs Date/Time: Jun 08, 2017 BMI 27.63 Index Weight 200.9 lbs Height 71.5 in Temperature 98.7 F Cardiac Monitoring Heart Rate 60 /min Blood Pressure Diastolic 75 mm Hg Blood Pressure Systolic 135 mm Hg Results No Known Results Summary Purpose [employer] Submission
--- OUTSIDE RECORDS SUMMARY | 2019-01-28 17:44 | XMS REPORT ---
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
--- OUTSIDE RECORDS SUMMARY | 2019-01-28 17:44 | XMS REPORT ---
Author Author Mahendra Harden Organization [employer] Address Unknown Phone Unavailable Care Team Providers Care Tape Making Machine Operator Name Role Phone Mahendra Harden CP Unavailable [...] Start Date End Date Status Dosage Alprazolam [facility] [address]-24 1 MG BY MOUTH FOUR TIMES A DAY Active 1 tablet Results No Known Results Summary Purpose [employer] Submission
--- OUTSIDE RECORDS SUMMARY | 2019-01-28 17:44 | XMS REPORT ---
Author Author Mahendra Harden Organization [employer] Address Unknown Phone Unavailable Care Team Providers Care Cafeteria Attendant Name Role Phone Mahendra Harden CP Unavailable Allergies No Known Allergies Problems Problem Type Condition Code Onset Dates Condition Status Problem Myositis M60.9 Active Problem Benign prostatic hyperplasia with lower urinary tract symptoms N40.1 Active Problem Hypothyroidism (acquired) E03.9 Active Problem Generalized anxiety disorder F41.1 Active Problem Memory loss R41.3 Active Problem Anxiety F41.9 Active Problem Neuropathy G62.9 Active Problem Muscle cramps R25.2 Active Medications Medication Code System Code Instructions Start Date End Date Status Dosage Zithromax Z-Rodrigo [facility] 89425615906 250 MG Orally Once a day Sep 01, 2017 Sep 06, 2017 Active 2 tablets on the first day, then 1 tablet daily for 4 days Results No Known Results Summary Purpose [employer] Submission
--- OUTSIDE RECORDS SUMMARY | 2019-01-28 17:44 | XMS REPORT ---
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 26254435282 350 Active TAKE 1/2 TABLET BY MOUTH THREE TIMES DAILY NEEDED Donepezil Hydrochloride [facility] [address]-25 10 by mouth hs Active 1 tablet at bedtime Levothyroxine Sodium ND 01151525985 25 MCG by mouth daily Active 1 tablet Tylenol Extra Strength ND 48908185563 500 MG Orally three times a day (tid) as needed (prn) Active 1 tablet Alprazolam ND 42734640012 1 MG BY MOUTH FOUR TIMES A DAY Active 1 tablet Vital Signs Date/Time: December 21, 2017 BMI 26.97 Index Weight 196.1 lbs Height 71.5 in Temperature 98.1 F Cardiac Monitoring Heart Rate 59 /min Blood Pressure Diastolic 58 mm Hg Blood Pressure Systolic 121 mm Hg Results Name Result Date Reference Range Unit Abnormality Flag Chest 2 views Summary Purpose [employer]Works Submission
--- OUTSIDE RECORDS SUMMARY | 2019-01-28 17:44 | XMS REPORT ---
Author Author Mahendra Harden Organization [employer] Address Unknown Phone Unavailable Care Team Providers Care Lead Machinist Name Role Phone Mahendra Harden CP Unavailable Allergies No Known Allergies Problems Problem Type Condition Code Onset Dates Condition Status Assessment Generalized anxiety disorder F41.1 Active Problem Memory loss R41.3 Active Assessment Hypothyroidism (acquired) E03.9 Active Assessment Muscle cramps R25.2 Active Problem Generalized anxiety disorder F41.1 Active Problem Hypothyroidism (acquired) E03.9 Active Problem Benign prostatic hyperplasia with lower urinary tract symptoms N40.1 Active Problem Myositis M60.9 Active Problem Anxiety F41.9 Active Problem Neuropathy G62.9 Active Problem Muscle cramps R25.2 Active Medications Medication Code System Code Instructions Start Date End Date Status Dosage Alprazolam [facility] [address]-42 1 MG BY MOUTH FOUR TIMES A DAY Active 1 tablet Carisoprodol [facility] [address]-87 350 MG Orally three times a day Jun 08, 2017 Active 1/2 tablet as needed Levothyroxine Sodium [facility] 99141841964 25 MCG by mouth daily Active 1 tablet Donepezil Hydrochloride [facility] 80281177027 10 by mouth Once a day Active 1 tablet at bedtime Results No Known Results Summary Purpose [employer]Works Submission
--- OUTSIDE RECORDS SUMMARY | 2019-01-28 17:44 | XMS REPORT ---
Author Author Mahendra Harden Organization [employer] Address Unknown Phone Unavailable Care Team Providers Care Machine Veneer Repairer Name Role Phone Mahendra Harden CP Unavailable [...] lower urinary tract symptoms N40.1 Active Assessment Right-sided chest pain R07.9 Active Assessment Hypoxia R09.02 Active Assessment Mesothelioma C45.9 Active Assessment Anorexia R63.0 Active Problem Myositis M60.9 Active Medications Medication Code System Code Instructions Start Date End Date Status Dosage Alprazolam ND 83166383478 1 MG BY MOUTH FOUR TIMES A DAY Active 1 tablet Tylenol/Codeine #3 ND 68866830927 300-30 MG Orally every 6 hrs January 05, 2018 Active 1 tablet as needed Levothyroxine Sodium ND 15599595330 25 MCG by mouth daily Active 1 tablet Carisoprodol ND 80274633607 350 Active TAKE 1/2 TABLET BY MOUTH THREE TIMES DAILY NEEDED Tylenol Extra Strength NDC 98689822716 500 MG Orally three times a day (tid) as needed (prn) Active 1 tablet Megace Oral NDC 0 40 MG/ML Orally Twice a day January 05, 2018 March 06, 2018 Active 1 [place] [address]-78 10 by mouth hs Active 1 tablet at bedtime Vital Signs Date/Time: January 05, 2018 Cardiac Monitoring Heart Rate 79 /min Blood Pressure Diastolic 58 mm Hg Blood Pressure Systolic 107 mm Hg Temperature 98.7 F Results No Known Results Summary Purpose [employer] Submission
--- OUTSIDE RECORDS SUMMARY | 2019-01-28 17:44 | XMS REPORT ---
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 Problem Chronic respiratory failure with hypoxia J96.11 Active Problem Mesothelioma C45.9 Active Problem 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
--- OUTSIDE RECORDS SUMMARY | 2019-01-28 17:44 | XMS REPORT ---
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
--- OUTSIDE RECORDS SUMMARY | 2019-01-28 17:44 | XMS REPORT ---
Author Author Mahendra Harden Organization eClinicalWorks Address Unknown Phone Unavailable Care Team Providers Care Chip Tester Name Role Phone Mahendra Harden CP Unavailable [...] Condition Code Onset Dates Condition Status Assessment Hypothyroidism (acquired) E03.9 Active Problem Memory loss R41.3 Active Assessment Neuropathy G62.9 Active Problem Generalized anxiety disorder F41.1 Active Problem Hypothyroidism (acquired) E03.9 Active Problem Benign prostatic hyperplasia with lower urinary tract symptoms N40.1 Active Problem Myositis M60.9 Active Problem Anxiety F41.9 Active Problem Neuropathy G62.9 Active Problem Muscle cramps R25.2 Active Assessment Generalized anxiety disorder F41.1 Active Assessment Benign prostatic hyperplasia with lower urinary tract symptoms N40.1 Active Assessment Chronic constipation K59.09 Active Medications Medication Code System Code Instructions Start Date End Date Status Dosage Aricept [facility] 01116185299 10 MG Active 1 TABLET AT BEDTIME BY MOUTH Tylenol Extra Strength [facility] [address]-55 500 MG Orally three times a day (tid) as needed (prn) Active 1 tablet Gabapentin [facility] [address]-78 300 MG Orally twice a day (bid) Oct 08, 2016 Active 1 capsule Donepezil Hydrochloride [facility] 92734471296 10 Active TAKE 1 TABLET BY MOUTH EVERY NIGHT AT BEDTIME Levothyroxine Sodium [facility] 46081187604 25 MCG Active 1 TABLET ONCE A DAY IN THE MORNING BY MOUTH Carisoprodol [facility] [address]-67 350 MG Orally three times a day Jun 08, 2017 Active 1/2 tablet as needed Alprazolam [facility] [address]-66 1 MG BY MOUTH FOUR TIMES A DAY Active 1 tablet Vital Signs Date/Time: Apr 13, 2017 BMI 28.88 Index Weight 210 lbs Height 71.5 in Temperature 98.1 F Cardiac Monitoring Heart Rate 67 /min Blood Pressure Diastolic 62 mm Hg Blood Pressure Systolic 146 mm Hg Results No Known Results Summary Purpose eClinicalWorks Submission
--- OUTSIDE RECORDS SUMMARY | 2019-01-28 17:44 | XMS REPORT ---
Author Author Mahendra Harden Organization eClinicalWorks Address Unknown Phone Unavailable Care Team Providers Care Dry Cans Back Tender Name Role Phone Mahendra Harden CP Unavailable Allergies No Known Allergies Problems Problem Type Condition Code Onset Dates Condition Status Problem Neuropathy G62.9 Active Problem Muscle cramps R25.2 Active Problem Hypothyroidism (acquired) E03.9 Active Problem Memory loss R41.3 Active Assessment Anxiety F41.9 Active Problem Myositis M60.9 Active Problem Anxiety F41.9 Active Medications Medication Code System Code Instructions Start Date End Date Status Dosage Alprazolam [facility] [address]-70 1 MG BY MOUTH FOUR TIMES A DAY Active 1 tablet Results No Known Results Summary Purpose eClinicalWorks Submission
--- OUTSIDE RECORDS SUMMARY | 2019-01-28 17:44 | XMS REPORT ---
Author Author Mahendra Harden Organization eClinicalWorks Address Unknown Phone Unavailable Care Team Providers Care Hypercil Core Transformer Assembler Name Role Phone Mahendra Harden CP Unavailable [...] Date End Date Status Dosage Tylenol/Codeine #3 [facility] 00032936930 300-30 MG Orally every 6 hrs January 05, 2018 Active 1 tablet as needed Results No Known Results Summary Purpose eClinicalWorks Submission
--- OUTSIDE RECORDS SUMMARY | 2019-01-28 17:44 | XMS REPORT ---
Author Author Mahendra Harden Organization eClinicalWorks Address Unknown Phone Unavailable Care Team Providers Care Manager School Name Role Phone Mahendra Harden CP Unavailable [...] Chronic respiratory failure with hypoxia J96.11 Active Assessment Injury of right shoulder, initial encounter S49.91XA Active Problem Memory loss R41.3 Active Problem Muscle cramps R25.2 Active Problem Myositis M60.9 Active Problem Neuropathy G62.9 Active Problem Anxiety F41.9 Active Problem Hypothyroidism (acquired) E03.9 Active Medications Medication Code System Code Instructions Start Date End Date Status Dosage folic acid 1 mg tablet NDC 0 10 mg by mouth daily Active 1 tablet Flomax ND 24954308345 0.4 MG Orally Once a day Active 2 capsule Acetaminophen-Codeine #3 [facility] 46611408988 0 Orally every 6 hrs Active 1 tablet as needed Alprazolam ND 63294725708 1 Orally Twice a day Active take 1 tablet by mouth four times daily Montelukast Sodium ND 33927032505 10 mg Orally Once a day Aug 01, 2018 Active 1 tab at bedtime Levothyroxine Sodium ND 14689523295 25 MCG by mouth daily Active 1 tablet aspirin 81 mg tablet NDC 0 Active not defined Vital Signs Date/Time: November 02, 2018 BMI 23.12 Index Weight 168.1 lbs Height 71.5 in Temperature 97.1 F Cardiac Monitoring Heart Rate 77 /min Blood Pressure Diastolic 72 mm Hg Blood Pressure Systolic 132 mm Hg Results No Known Results Summary Purpose eClinicalWorks Submission
--- OUTSIDE RECORDS SUMMARY | 2019-01-28 17:44 | XMS REPORT ---
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 Active Problem Benign prostatic hyperplasia with lower urinary tract symptoms N40.1 Active Problem Generalized anxiety disorder F41.1 Active Problem Anorexia R63.0 Active Problem 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 12754061955 350 Orally twice a day (bid) Active TAKE 1/2 TABLET BY MOUTH THREE TIMES DAILY NEEDED folic acid 1 mg tablet ND 68312962527 Active not defined Myrbetriq ND 05012398447 25 MG Orally Once a day May 13, 2018 Jun 12, 2018 Active 1 tablet Levothyroxine Sodium ND 91805288014 25 MCG by mouth daily Active 1 tablet aspirin 81 mg tablet NDC 0 Active not defined Donepezil Hydrochloride [facility] 44565302477 10 Active TAKE 1 TABLET BY MOUTH EVERY NIGHT AT BEDTIME Flomax ND 78776927447 0.4 MG Orally Once a day Active 2 capsule Alprazolam [facility] 59270619100 1 MG BY MOUTH FOUR TIMES A DAY Active 1 tablet Alprazolam [facility] 07784229226 1 Active TAKE 1 TABLET BY MOUTH FOUR TIMES DAILY Acetaminophen-Codeine #3 [facility] 25022597037 0 Active TAKE 1 TABLET BY MOUTH EVERY 6 HOURS NEEDED Vital Signs Date/Time: May 30, 2018 BMI 22.73 Index Weight 165.3 lbs Height 71.5 in Temperature 97.3 F Cardiac Monitoring Heart Rate 74 /min Blood Pressure Diastolic 58 mm Hg Blood Pressure Systolic 100 mm Hg Results No Known Results Summary Purpose eClinicalWorks Submission
--- OUTSIDE RECORDS SUMMARY | 2019-01-28 17:44 | XMS REPORT ---
Author Author Mahendra Harden Organization eClinicalWorks Address Unknown Phone Unavailable Care Team Providers Care Multigrapher Name Role Phone Mahendra Harden CP Unavailable [...] respiratory failure with hypoxia J96.11 Active Assessment Falls frequently R29.6 Active Assessment Environmental allergies Z91.09 Active Problem Memory loss R41.3 Active Problem Muscle cramps R25.2 Active Problem Myositis M60.9 Active Problem Neuropathy G62.9 Active Problem Anxiety F41.9 Active Problem Hypothyroidism (acquired) E03.9 Active Medications Medication Code System Code Instructions Start Date End Date Status Dosage Montelukast Sodium [facility] 91212863991 10 mg Orally Once a day Aug 01, 2018 Active 1 tab at bedtime Alprazolam ND 16269017579 1 Orally Twice a day Active take 1 tablet by mouth four times daily folic acid 1 mg tablet NDC 0 10 mg by mouth daily Active 1 tablet Levothyroxine Sodium NDC 47776579282 25 MCG by mouth daily Active 1 tablet Results No Known Results Summary Purpose eClinicalWorks Submission
--- OUTSIDE RECORDS SUMMARY | 2019-01-28 17:44 | XMS REPORT ---
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 Problem Chronic respiratory failure with hypoxia J96.11 Active Assessment Falls frequently R29.6 Active Assessment Environmental allergies Z91.09 Active Assessment Muscle weakness M62.81 Active Problem Memory loss R41.3 Active Problem Muscle cramps R25.2 Active Problem Myositis M60.9 Active Problem Neuropathy G62.9 Active Problem Anxiety F41.9 Active Problem Hypothyroidism (acquired) E03.9 Active Medications Medication Code System Code Instructions Start Date End Date Status Dosage Montelukast Sodium [facility] 36098434493 10 MG Orally Once a day Aug 01, 2018 Active 1 tab at bedtime aspirin 81 mg tablet NDC 0 Active not defined folic acid 1 mg tablet NDC 27547574898 by mouth daily Active 1 tablet Acetaminophen-Codeine #3 ND 99056714268 0 Orally every 6 hrs Active 1 tablet as needed Flomax ND 30276567090 0.4 MG Orally Once a day Active 2 capsule Levothyroxine Sodium ND 54548018585 25 MCG by mouth daily Active 1 tablet Alprazolam [facility] 88676505404 1 Orally Twice a day Active take 1 tablet by mouth four times daily Vital Signs Date/Time: Sep 05, 2018 BMI 22.19 Index Weight 161.4 lbs Height 71.5 in Temperature 96.5 F Cardiac Monitoring Heart Rate 57 /min Blood Pressure Diastolic 98 mm Hg Blood Pressure Systolic 128 mm Hg Results No Known Results Summary Purpose eClinicalWorks Submission
--- OUTSIDE RECORDS SUMMARY | 2019-01-28 17:44 | XMS REPORT ---
Author Author Mahendra Harden Organization eClinicalWorks Address Unknown Phone Unavailable Care Team Providers Care Aircraft Restorer Name Role Phone Mahendra Harden CP Unavailable [...] Condition Code Onset Dates Condition Status Assessment Benign prostatic hyperplasia with lower urinary tract symptoms N40.1 Active Problem Myositis M60.9 Active Assessment Nocturia R35.1 Active Problem Benign prostatic hyperplasia with lower urinary tract symptoms N40.1 Active Problem Hypothyroidism (acquired) E03.9 Active Problem Generalized anxiety disorder F41.1 Active Problem Memory loss R41.3 Active Problem Anxiety F41.9 Active Problem Neuropathy G62.9 Active Problem Muscle cramps R25.2 Active Assessment Acute biliary pancreatitis, unspecified complication status K85.10 Active Assessment Urinary retention R33.9 Active Assessment Acute cystitis without hematuria N30.00 Active Medications Medication Code System Code Instructions Start Date End Date Status Dosage Tylenol Extra Strength ND 31266260890 500 MG Orally three times a day (tid) as needed (prn) Active 1 tablet Levothyroxine Sodium ND 53367983322 25 MCG by mouth daily Active 1 tablet Flomax ND 60684013507 0.4 MG Orally Once a day Sep 13, 2017 November 12, 2017 Active 2 capsule Alprazolam ND 61224402699 1 MG BY MOUTH FOUR TIMES A DAY Active 1 tablet Carisoprodol ND 49555906046 350 MG Orally as needed three times a day November 12, 2017 Active 1/2 [place] [address]-65 10 by mouth hs Active 1 tablet at bedtime Ciprofloxacin HCl ND 48266687759 500 mg Orally Twice a day Sep 13, 2017 Sep 20, 2017 Active 1 tablet Vital Signs Date/Time: Sep 13, 2017 BMI 26.97 Index Weight 196.1 lbs Height 71.5 in Temperature 97.8 F Cardiac Monitoring Heart Rate 63 /min Blood Pressure Diastolic 58 mm Hg Blood Pressure Systolic 119 mm Hg Results No Known Results Summary Purpose eClinicalWorks Submission
--- OUTSIDE RECORDS SUMMARY | 2019-01-28 17:44 | XMS REPORT ---
Author Author Mahendra Harden Organization eClinicalWorks Address Unknown Phone Unavailable Care Team Providers Care Vacuum Caster Name Role Phone Mahendra Harden CP Unavailable [...] N40.1 Active Problem Myositis M60.9 Active Assessment Pneumonia of both lower lobes due to infectious organism J18.9 Active Problem Benign prostatic hyperplasia with lower urinary tract symptoms N40.1 Active Problem Hypothyroidism (acquired) E03.9 Active Problem Generalized anxiety disorder F41.1 Active Problem Memory loss R41.3 Active Problem Anxiety F41.9 Active Problem Neuropathy G62.9 Active Problem Muscle cramps R25.2 Active Medications Medication Code System Code Instructions Start Date End Date Status Dosage Flomax [facility] 77673841244 0.4 MG Orally Once a day Sep 13, 2017 November 12, 2017 Active 2 capsule Donepezil Hydrochloride [facility] [address]-99 10 by mouth hs Active 1 tablet at bedtime Alprazolam [facility] 88018710378 1 MG BY MOUTH FOUR TIMES A DAY Active 1 tablet Carisoprodol [facility] 41935907014 350 MG Orally as needed three times a day November 12, 2017 Active 1/2 half tablet Levothyroxine Sodium ND 05397677771 25 MCG by mouth daily Active 1 tablet Tylenol Extra Strength ND 77259380698 500 MG Orally three times a day (tid) as needed (prn) Active 1 tablet Vital Signs Date/Time: Sep 27, 2017 BMI 26.97 Index Weight 196.1 lbs Height 71.5 in Temperature 95.5 F Cardiac Monitoring Heart Rate 67 /min Blood Pressure Diastolic 66 mm Hg Blood Pressure Systolic 140 mm Hg Results No Known Results Summary Purpose eClinicalWorks Submission
--- OUTSIDE RECORDS SUMMARY | 2019-01-28 17:44 | XMS REPORT ---
Author Author Mahendra Harden Organization eClinicalWorks Address Unknown Phone Unavailable Care Team Providers Care Commonwealth Attorney Name Role Phone Mahendra Harden CP Unavailable [...] Start Date End Date Status Dosage Alprazolam [facility] 31722185732 1 Active TAKE 1 TABLET BY MOUTH FOUR TIMES DAILY Results No Known Results Summary Purpose eClinicalWorks Submission
--- OUTSIDE RECORDS SUMMARY | 2019-01-28 17:44 | XMS REPORT ---
Author Author Mahendra Harden Organization eClinicalWorks Address Unknown Phone Unavailable Care Team Providers Care Manager City Name Role Phone Mahendra Harden CP Unavailable [...] Start Date End Date Status Dosage [facility]prazolam [facility] 61383457990 1 MG BY MOUTH FOUR TIMES A DAY Active 1 tablet Results No Known Results Summary Purpose eClinicalWorks Submission
--- OUTSIDE RECORDS SUMMARY | 2019-01-28 17:44 | XMS REPORT ---
Author Author Mahendra Harden Organization eClinicalWorks Address Unknown Phone Unavailable Care Team Providers Care Extrusion Press Supervisor Name Role Phone Mahendra Harden CP Unavailable Allergies No Known Allergies Problems Problem Type Condition Code Onset Dates Condition Status Assessment Muscle cramps R25.2 Active Problem Neuropathy G62.9 Active Problem Muscle cramps R25.2 Active Problem Hypothyroidism (acquired) E03.9 Active Problem Memory loss R41.3 Active Assessment Anxiety F41.9 Active Problem Myositis M60.9 Active Problem Anxiety F41.9 Active Medications Medication Code System Code Instructions Start Date End Date Status Dosage Alprazolam [facility] [address]-60 1 MG BY MOUTH FOUR TIMES A DAY Active 1 tablet Carisoprodol [facility] [address]-47 350 MG Orally three times a day Jun 08, 2017 Active 1/2 tablet as needed Results No Known Results Summary Purpose eClinicalWorks Submission
--- OUTSIDE RECORDS SUMMARY | 2019-01-28 17:45 | XMS REPORT ---
Author Author Mahendra Harden Organization eClinicalWorks Address Unknown Phone Unavailable Care Team Providers Care Guard Chief Name Role Phone Mahendra Harden CP Unavailable [...]
--- OUTSIDE RECORDS SUMMARY | 2019-01-28 17:45 | XMS REPORT ---
Author Author Mahendra Harden [facility] eClinicalWorks Address Unknown Phone Unavailable Care Team Providers Care Director Of Contracts Name Role Phone Mahendra Harden CP Unavailable [...] Status Dosage Alprazolam [facility] 75167476867 1 Orally every six to eight hours Active TAKE 1 TABLET BY MOUTH FOUR TIMES DAILY Results No Known Results Summary Purpose eClinicalWorks Submission
--- OUTSIDE RECORDS SUMMARY | 2019-01-28 17:45 | XMS REPORT ---
Author Author Mahendra Harden Organization eClinicalWorks Address Unknown Phone Unavailable Care Team Providers Care Separator Operator Name Role Phone Mahendra Harden CP [...] Date End Date Status Dosage Tylenol/Codeine #3 [facility] 42761445972 300-30 MG Orally every 6 hrs January 05, 2018 Mar 24, 2018 Active 1 tablet as needed Carisoprodol [facility] 32416978301 350 Orally twice a day (bid) Active TAKE 1/2 TABLET BY MOUTH THREE TIMES DAILY NEEDED Results No Known Results Summary Purpose eClinicalWorks Submission
--- OUTSIDE RECORDS SUMMARY | 2019-01-28 17:45 | XMS REPORT ---
Author Author Mahendra Harden Organization eClinicalWorks Address Unknown Phone Unavailable Care Team Providers Care Pediatric Nurse Practitioner Name Role Phone Mahendra Harden CP Unavailable Allergies No Known Allergies Problems Problem Type Condition Code Onset Dates Condition Status Problem Anxiety F41.9 Active Problem Neuropathy G62.9 Active Problem Muscle cramps R25.2 Active Problem Myositis M60.9 Active Problem Memory loss R41.3 Active Problem Mesothelioma C45.9 Active Problem Anorexia R63.0 Active Problem Chronic respiratory failure with hypoxia J96.11 Active Problem Generalized anxiety disorder F41.1 Active Problem Hypothyroidism (acquired) E03.9 Active Problem 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
--- OUTSIDE RECORDS SUMMARY | 2019-01-28 17:45 | XMS REPORT ---
Author Author Mahendra Harden Organization eClinicalWorks Address Unknown Phone Unavailable Care Team Providers Care Sightseeing Guide Name Role Phone Mahendra Harden CP Unavailable [...] incontinence N39.46 Active Problem Myositis M60.9 Active Assessment Anxiety F41.9 Active Problem Muscle cramps R25.2 Active Problem Neuropathy G62.9 Active Problem Anxiety F41.9 Active Problem Hypothyroidism (acquired) E03.9 Active Problem Memory loss R41.3 Active Problem Generalized anxiety disorder F41.1 Active Medications Medication Code System Code Instructions Start Date End Date Status Dosage Alprazolam ND 93977091430 1 Orally four times a day Active 1 tablet Alprazolam ND 90320059372 1 MG Orally four times a day (qid) November 28, 2018 Active 1 tablet as needed Results No Known Results Summary Purpose eClinicalWorks Submission
--- OUTSIDE RECORDS SUMMARY | 2019-01-28 17:45 | XMS REPORT ---
Author Author Mahendra Harden Organization eClinicalWorks Address Unknown Phone Unavailable Care Team Providers Care Animal Researcher Name Role Phone Mahendra Harden CP Unavailable [...] respiratory failure with hypoxia J96.11 Active Assessment Hypothyroidism (acquired) E03.9 Active Problem Memory loss R41.3 Active Problem Muscle cramps R25.2 Active Problem Myositis M60.9 Active Problem Neuropathy G62.9 Active Problem Anxiety F41.9 Active Problem Hypothyroidism (acquired) E03.9 Active Medications Medication Code System Code Instructions Start Date End Date Status Dosage Levothyroxine Sodium [facility] 36472279773 25 MCG by mouth daily Active 1 tablet Results No Known Results Summary Purpose eClinicalWorks Submission
--- OUTSIDE RECORDS SUMMARY | 2019-01-28 17:45 | XMS REPORT ---
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 Problem Chronic respiratory failure with hypoxia J96.11 Active Assessment Falls frequently R29.6 Active Assessment Environmental allergies Z91.09 Active Assessment Pre-syncope R55 Active Problem Memory loss R41.3 Active Problem Muscle cramps R25.2 Active Problem Myositis M60.9 Active Problem Neuropathy G62.9 Active Problem Anxiety F41.9 Active Problem Hypothyroidism (acquired) E03.9 Active Medications Medication Code System Code Instructions Start Date End Date Status Dosage Alprazolam [facility] 50414356206 1 MG BY MOUTH FOUR TIMES A DAY Active 1 tablet aspirin 81 mg tablet NDC 0 Active not defined Alprazolam NDC 56459253367 1 Orally Twice a day Active take 1 tablet by mouth four times daily Carisoprodol ND 42919773158 350 Orally twice a day (bid) Active TAKE 1/2 TABLET BY MOUTH THREE TIMES DAILY NEEDED Flomax ND 18497090557 0.4 MG Orally Once a day Active 2 capsule Acetaminophen-Codeine #3 [facility] 81122063369 0 Orally every 6 hrs Active 1 tablet as needed Montelukast Sodium [facility] 71398477032 10 MG Orally Once a day Aug 01, 2018 Active 1 tab at bedtime folic acid 1 mg tablet [facility] 67138225821 by mouth daily Active 1 tablet Levothyroxine Sodium [facility] 75513063218 25 MCG by mouth daily Active 1 tablet Donepezil Hydrochloride [facility] 03348952255 10 Active TAKE 1 TABLET BY MOUTH EVERY NIGHT AT BEDTIME Vital Signs Date/Time: Aug 01, 2018 BMI 21.64 Index Weight 157.4 lbs Height 71.5 in Temperature 97.6 F Cardiac Monitoring Heart Rate 73 /min Blood Pressure Diastolic 57 mm Hg Blood Pressure Systolic 94 mm Hg Results No Known Results Summary Purpose eClinicalWorks Submission
--- OUTSIDE RECORDS SUMMARY | 2019-01-28 17:45 | XMS REPORT ---
Author Author Mahendra Harden Organization eClinicalWorks Address Unknown Phone Unavailable Care Team Providers Care Quality Review Trainer Name Role Phone Mahendra Harden CP Unavailable [...] Date End Date Status Dosage Alprazolam ND 53812254486 1 Orally every six to eight hours Active TAKE 1 TABLET BY MOUTH FOUR TIMES DAILY Tylenol Extra Strength NDC 18130639327 500 mg Orally three times a day (tid) as needed (prn) May 22, 2018 Active 1 tablet Results No Known Results Summary Purpose eClinicalWorks Submission
--- OUTSIDE RECORDS SUMMARY | 2019-01-28 17:45 | XMS REPORT ---
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 Active Problem Chest pain, other 786.59 Active Problem Anxiety state, unspecified 300.00 Active Problem 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 Problem Rotator cuff (capsule) sprain and strain 840.4 Active Problem Other anxiety states 300.09 Active Problem Diarrhea of presumed infectious origin 009.3 Active Problem BPH - Hypertrophy (benign) of prostate without urinary obstruction and other lower urinary tract symptoms [LUTS] 600.00 Active Problem Anxiety state, unspecified 300.00 Active Problem Generalized anxiety disorder 300.02 Active Problem Muscle weakness (generalized) 728.87 Active Problem Infectious colitis, enteritis, and gastroenteritis 009.0 Active Social History Social History Element Qualifiers Date Reported Tobacco Use: . Status: Never smoker Jul 06, 2013 Do you drink alcohol? . Status: No Jul 06, 2013 Vital Signs Date/Time: Jul 06, 2013 Weight 216.3 lbs Height 71.5 inches Temperature 98.3 F Cardiac Monitoring Heart Rate 57 Beats per Minute Blood Pressure Diastolic 77 mm Hg Blood Pressure Systolic 133 mm Hg Summary Purpose eClinicalWorks Submission
--- OUTSIDE RECORDS SUMMARY | 2019-01-28 17:45 | XMS REPORT ---
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 Assessment Anxiety F41.9 Active Assessment Chronic respiratory failure with hypoxia J96.11 Active Problem Myositis M60.9 Active Assessment Benign prostatic hyperplasia with lower urinary tract symptoms N40.1 Active Problem Memory loss R41.3 Active Assessment Mesothelioma C45.9 Active Problem Anxiety F41.9 Active Medications Medication Code System Code Instructions Start Date End Date Status Dosage Alprazolam [facility] 95771265045 1 MG BY MOUTH FOUR TIMES A DAY Active 1 tablet folic acid 1 mg tablet [facility] 02630903852 Active not defined Carisoprodol ND 29842134671 350 Orally twice a day (bid) Active TAKE 1/2 TABLET BY MOUTH THREE TIMES DAILY NEEDED Flomax ND 81862352802 0.4 MG Orally Once a day Active 2 capsule Acetaminophen-Codeine #3 [facility] 55562525960 0 Active TAKE 1 TABLET BY MOUTH EVERY 6 HOURS NEEDED aspirin 81 mg tablet NDC 0 Active not defined Donepezil Hydrochloride [facility] 64863778525 10 Active TAKE 1 TABLET BY MOUTH EVERY NIGHT AT BEDTIME Levothyroxine Sodium [facility] 45377625581 25 MCG by mouth daily Active 1 tablet Alprazolam [facility] 13017595327 1 Active TAKE 1 TABLET BY MOUTH FOUR TIMES DAILY Tylenol Extra Strength [facility] 31139232649 500 mg Orally three times a day (tid) as needed (prn) May 22, 2018 Active 1 tablet Vital Signs Date/Time: Apr 28, 2018 BMI 22.61 Index Weight 164.4 lbs Height 71.5 in Temperature 98.7 F Cardiac Monitoring Heart Rate 65 /min Blood Pressure Diastolic 47 mm Hg Blood Pressure Systolic 109 mm Hg Results No Known Results Summary Purpose eClinicalWorks Submission
--- OUTSIDE RECORDS SUMMARY | 2019-01-28 17:45 | XMS REPORT ---
Author Author Mahendra Harden Organization eClinicalWorks Address Unknown Phone Unavailable Care Team Providers Care Care Transition Manager Name Role Phone Mahendra Harden CP Unavailable [...] J96.11 Active Assessment Hypothyroidism (acquired) E03.9 Active Assessment Right-sided chest pain R07.9 Active Problem Memory loss R41.3 Active Problem Muscle cramps R25.2 Active Problem Myositis M60.9 Active Problem Neuropathy G62.9 Active Problem Anxiety F41.9 Active Problem Hypothyroidism (acquired) E03.9 Active Medications Medication Code System Code Instructions Start Date End Date Status Dosage Carisoprodol [facility] 97756251621 350 Orally twice a day (bid) Active TAKE 1/2 TABLET BY MOUTH THREE TIMES DAILY NEEDED Levothyroxine Sodium ND 01282811707 25 MCG by mouth daily Active 1 tablet Results No Known Results Summary Purpose eClinicalWorks Submission
--- OUTSIDE RECORDS SUMMARY | 2019-01-28 17:46 | XMS REPORT ---
Author Author Charmaine Sutton [facility] eClinicalWorks Address Unknown Phone Unavailable Care Team Providers Care Track Greaser Name Role Phone Charmaine Sutton Unavailable Allergies, Adverse Reactions, Alerts Substance Reaction Event Type Codeine Info Not Available Drug Allergy Sudafed Info Not Available Drug Allergy Hydrocodone Bitartrate Info Not Available Drug Allergy Cipro Info Not Available Drug Allergy Antihistamine Info Not Available Drug Allergy Aleve Info Not Available Drug Allergy proscar ankle pain Non Drug Allergy Encounters Encounter Location Date Follow-up for mutiple problems Charmaine Sutton MD Aug 08, 2014 Follow-up for mutiple problems Charmaine Sutton MD November 08, 2014 Echo, Carotid, Lower Dopp. Charmaine Sutton MD November 15, 2014 Follow-up for mutiple problems Charmaine Sutton MD December 11, 2014 Unknown Charmaine Sutton MD Oct 10, 2013 Follow-up for mutiple problems Charmaine Sutton MD February 15, 2014 Follow-up for mutiple problems Charmaine Sutton MD May 16, 2014 Follow-up for mutiple problems Charmaine Sutton MD Apr 18, 2015 Follow-up for mutiple problems Charmaine Sutton MD Jul 29, 2015 Problems Problem Type Condition ICD-9 Code Onset Dates Condition Status Assessment Generalized anxiety disorder F41.1 Active Assessment Hypothyroid E03.9 Active Assessment Rotator cuff syndrome of shoulder and allied disorders M75.100 Active Assessment 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 Problem Anxiety state, unspecified 300.00 Active Problem Muscle weakness (generalized) 728.87 Active Problem Diarrhea of presumed infectious origin 009.3 Active Problem BPH - Hypertrophy (benign) of prostate without urinary obstruction and other lower urinary tract symptoms [LUTS] 600.00 Active Problem Generalized anxiety disorder 300.02 Active Problem Malnutrition of moderate degree 263.0 Active Problem Infectious colitis, enteritis, and gastroenteritis 009.0 Active Problem Other vitamin B12 deficiency anemia 281.1 Active Problem Allergic rhinitis, cause unspecified 477.9 Active Problem hypothyroidism 244.9 Active Problem Neck muscle spasm 728.85 Active Problem 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 Problem 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 Problem Generalized anxiety disorder F41.1 Active Problem 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 Problem 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 Problem Rotator cuff syndrome of shoulder and allied disorders M75.100 Active Problem Abdominal pain, left lower quadrant 789.04 Active Problem Neck pain M54.2 Active Problem Dementia 294.20 Active Problem Hypothyroid E03.9 Active Problem Dementia F03.90 Active Assessment Neck pain M54.2 Active Problem Rotator cuff (capsule) sprain and strain 840.4 Active Assessment Dementia F03.90 Active Problem 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 Active Problem Anxiety state, unspecified 300.00 Active Problem Other anxiety states 300.09 Active Problem Loss of weight 783.21 Active Problem Body Mass Index 28.0-28.9, adult V85.24 Active Problem Mixed hyperlipidemia 272.2 Active Problem Chest pain, other 786.59 Active Medications Medication Code System Code Instructions Start Date End Date Status Dosage [facility] 14[facility] 1 Active TAKE 1 TABLET BY MOUTH FOUR TIMES DAILY [facility] [address]-47 10 mg Orally Once a day Apr 18, 2015 Active 1 tablet at bedtime Levothyroxine Sodium [facility] [address]-89 25 MCG Orally Once a day February 15, 2014 Active 1 tablet on an empty stomach in the morning Vitamin B 12 [facility] [address]83-[address]43 100 MCG Orally Active Unknown Tylenol [facility] [address]-16 500 MG/15ML Orally as needed (prn) Active 1 tab Aleve [facility] [address]-03 220 MG Orally one in the morning and one in the evening. Active 1 tablet [facility]oprodol [facility] [address]-67 350 MG Orally three times a day (tid) Oct 15, 2015 Active 1/2 half tablet Social History Social History Element Qualifiers Date Reported Tobacco Use: . Status: Never smoker Jul 29, 2015 Do you drink alcohol? . Status: No Jul 29, 2015 Family history Qualifier Description Comment Date Reported Maternal Grandmother Comment not available Jul 29, 2015 Paternal Grandmother Comment not available Jul 29, 2015 Siblings Comment not available Jul 29, 2015 Maternal Grandfather Comment not available Jul 29, 2015 Father colon cancer Jul 29, 2015 Mother Comment not available Jul 29, 2015 Paternal Grandfather Comment not available Jul 29, 2015 Other: Comment not available Jul 29, 2015 Vital Signs Date/Time: Jul 29, 2015 Weight 217.0 lbs Height 71.5 in Temperature 98.6 F Cardiac Monitoring Heart Rate 65 /min Blood Pressure Diastolic 71 mm Hg Blood Pressure Systolic 134 mm Hg Respiratory Rate 20 /min Summary Purpose eClinicalWorks Submission
--- OUTSIDE RECORDS SUMMARY | 2019-01-28 17:46 | XMS REPORT ---
Author Author Mahendra Harden [facility] eClinicalWorks Address Unknown Phone Unavailable Care Team Providers Care Water Resources Engineer Name Role Phone Mahendra Harden CP Unavailable Encounters Encounter Location Date Follow-up for mutiple [...] Follow-up for mutiple problems Charmaine Sutton MD Oct 21, 2015 Follow-up for mutiple problems Charmaine Sutton MD Apr 18, 2015 Follow-up for mutiple problems Charmaine Sutton MD Jul 29, 2015 Unknown [facility] Jul 21, 2016 Unknown [facility] Aug 25, 2016 Unknown [facility] November 21, 2015 Unknown [facility] January 17, 2016 Problems Problem Type Condition ICD-9 Code Onset Dates Condition Status Problem Myositis M60.9 Active Problem Hypothyroidism E03.9 Active Problem Muscle cramps R25.2 Active Assessment Muscle cramps R25.2 Active Problem Anxiety F41.9 Active Problem Memory loss R41.3 Active Medications Medication Code System Code Instructions Start Date End Date Status Dosage Carisoprodol [facility] [address]-83 350 MG Orally three times a day Active 1/2 tablet as needed Social History Social History Element Qualifiers Date Reported Do you take Aspirin, or a blood thinner . Yes I do take aspirin/ or a blood thinner CONCHA HUGHES 11/21/2015 1:44:31 PM > May 15, 2016 Tobacco Use: . Are you a: never smoker May 15, 2016 Marital Status: . WidowedANDCONCHA PIEDRA 11/21/2015 1:45:15 PM > May 15, 2016 Caffeine intake? . Status: Yes, What type: Coffee, Tea, Soft Drinks May 15, 2016 Do you drink alcohol? . Status: No May 15, 2016 Summary Purpose eClinicalWorks Submission
--- OUTSIDE RECORDS SUMMARY | 2019-01-28 17:46 | XMS REPORT ---
Author Author Mahendra Harden [facility] eClinicalWorks Address Unknown Phone Unavailable Care Team Providers Care House Worker Name Role Phone Mahendra Harden CP [...] Charmaine Sutton MD Jul 29, 2015 Unknown [facility] Jul 21, 2016 Unknown [facility] November 21, 2015 Unknown [facility] January 17, 2016 Problems Problem Type Condition ICD-9 Code Onset Dates Condition Status Problem Myositis M60.9 Active Problem Hypothyroidism E03.9 Active Problem Muscle cramps R25.2 Active Assessment Anxiety F41.9 Active Problem Anxiety F41.9 Active Problem Memory loss R41.3 Active Medications Medication Code System Code Instructions Start Date End Date [facility] D[facility] [address]-29 1 MG BY MOUTH FOUR TIMES A DAY Active 1 tablet Social History Social History Element Qualifiers [...]
--- OUTSIDE RECORDS SUMMARY | 2019-01-28 17:46 | XMS REPORT ---
Author Author Mahendra Harden [facility] eClinicalWorks Address Unknown Phone Unavailable Care Team Providers Care Tire Worker Name Role Phone Mahendra Harden CP Unavailable Encounters Encounter Location Date Follow-up for mutiple problems Charmaine Sutton MD Aug 08, 2014 Follow-up for mutiple problems Charmaine Sutton MD November 08, 2014 Echo, Carotid, Lower Dopp. Charmaine Sutton MD November 15, 2014 Follow-up for mutiple problems Charmaine Sutton MD December 11, 2014 Unknown Charmaine Sutton MD Oct 10, 2013 Unknown [facility] November 21, 2015 Follow-up for mutiple problems Charmaine Sutton MD February 15, 2014 Unknown [facility] January 17, 2016 Follow-up for mutiple problems Charmaine Sutton MD May 16, 2014 Follow-up for mutiple problems Charmaine Sutton MD Oct 21, 2015 Follow-up for mutiple problems Charmaine Sutton MD Apr 18, 2015 Follow-up for mutiple problems Charmaine Sutton MD Jul 29, 2015 Problems Problem Type Condition ICD-9 Code Onset Dates Condition Status Problem Hypothyroidism E03.9 Active Problem Anxiety F41.9 Active Problem Myositis M60.9 Active Problem Memory loss R41.3 Active Assessment Anxiety F41.9 Active Medications Medication Code System Code Instructions Start Date End Date Status Dosage Alprazolam [facility] [address]-99 1 MG BY MOUTH FOUR TIMES A DAY Active 1 tablet Social History Social History Element Qualifiers Date Reported Do you take Aspirin, or a blood thinner . Yes I do take aspirin/ or a blood thinner JASMIN HUGHESFER 11/21/2015 1:44:31 PM > November 21, 2015 Tobacco Use: . Are you a: never smoker November 21, 2015 Marital Status: . WidowedANDCONCHA PIEDRA 11/21/2015 1:45:15 PM > November 21, 2015 Caffeine intake? . Status: Yes, What type: Coffee, Tea, Soft Drinks November 21, 2015 Do you drink alcohol? . Status: No November 21, 2015 Summary Purpose eClinicalWorks Submission
--- OUTSIDE RECORDS SUMMARY | 2019-01-28 17:46 | XMS REPORT ---
Author Author Mahendra Harden Organization eClinicalWorks Address Unknown Phone Unavailable Care Team Providers Care Blasting Helper Name Role Phone Mahendra Harden CP Unavailable Allergies, Adverse Reactions, Alerts Substance Reaction Event Type Sudafed Info Not Available Drug Allergy Proscar Info Not Available Drug Allergy Hydrocodone Bitartrate Info Not Available Drug Allergy Codeine Sulfate Info Not Available Drug Allergy Cipro Info Not Available Drug Allergy Antihistamine Info Not Available Drug Allergy Aleve Info Not Available Drug Allergy Encounters Encounter Location Date Follow-up [...] Charmaine Sutton MD Jul 29, 2015 Unknown [facility] Sep 16, 2016 Follow-Up [facility] Oct 08, 2016 Unknown [facility] Jul 21, 2016 Unknown [facility] Aug 25, 2016 Unknown [facility] November 21, 2015 Unknown [facility] January 17, 2016 Problems Problem Type Condition ICD-9 Code Onset Dates Condition Status Assessment Neuropathy G62.9 Active Assessment Anxiety F41.9 Active Assessment Muscle cramps R25.2 Active Problem Muscle cramps R25.2 Active Problem Myositis M60.9 Active Problem Neuropathy G62.9 Active Problem Memory loss R41.3 Active Assessment Myositis of left foot, unspecified myositis type M60.872 Active Problem Hypothyroidism E03.9 Active Problem Anxiety F41.9 Active Medications Medication Code System Code Instructions Start Date End Date Status Dosage Carisoprodol [facility] [address]-32 350 MG Orally three times a day Active 1/2 tablet as needed Levothyroxine Sodium [facility] [address]-18 25 MCG BY MOUTH ONCE A DAY IN THE MORNING Active 1 tablet [address]ap[address] [facility] [address]-86 300 MG Orally twice a day (bid) Oct 08, 2016 Active 1 capsule [address] [facility] [address]-36 10 MG BY MOUTH AT BEDTIME Active 1 tablet Alprazolam [facility] [address]-89 1 MG BY MOUTH FOUR TIMES A DAY Active 1 tablet Social History Social History Element Qualifiers Date Reported Do you take Aspirin, or a blood thinner . Yes I do take aspirin/ or a blood thinner CONCHA HUGHES 11/21/2015 1:44:31 PM > Oct 08, 2016 Tobacco Use: . Are you a: never smoker Oct 08, 2016 Marital Status: . WidowedANDCONCHA PIEDRA 11/21/2015 1:45:15 PM > Oct 08, 2016 Caffeine intake? . Status: Yes, What type: Coffee, Tea, Soft Drinks Oct 08, 2016 Do you drink alcohol? . Status: No Oct 08, 2016 Vital Signs Date/Time: Oct 08, 2016 Weight 224.5 lbs Height 71.5 in Temperature 98.0 F Cardiac Monitoring Heart Rate 56 /min Blood Pressure Diastolic 61 mm Hg Blood Pressure Systolic 118 mm Hg Summary Purpose eClinicalWorks Submission
--- OUTSIDE RECORDS SUMMARY | 2019-01-28 17:46 | XMS REPORT ---
Author Author Charmaine Sutton [facility] eClinicalWorks Address Unknown Phone Unavailable Care Team Providers Care Coater Associate Name Role Phone Charmaine Sutton CP Unavailable Allergies, Adverse Reactions, Alerts Substance [...] problems Charmaine Sutton MD Aug 08, 2014 Unknown Charmaine Sutton MD Oct 10, 2013 Follow-up for mutiple problems Charmaine Sutton MD February 15, 2014 Follow-up for mutiple problems Charmaine Sutton MD May 16, 2014 Problems Problem Type Condition ICD-9 Code Onset Dates Condition Status Assessment Dementia 294.20 Active Assessment hypothyroidism 244.9 Active Assessment Generalized anxiety disorder 300.02 Active Problem Rotator cuff (capsule) sprain and strain 840.4 Active Assessment 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 Problem 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 Active Problem Anxiety state, unspecified 300.00 Active Problem Mixed hyperlipidemia 272.2 Active Problem Loss of weight 783.21 Active Problem Chest pain, other 786.59 Active Problem Neck muscle spasm 728.85 Active Problem 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 Problem BPH - Hypertrophy (benign) of prostate without urinary obstruction and other lower urinary tract symptoms [LUTS] 600.00 Active Problem Diarrhea of presumed infectious origin 009.3 Active Problem Dementia 294.20 Active Problem Muscle weakness (generalized) 728.87 Active Problem Malnutrition of moderate degree 263.0 Active Problem Body Mass Index 28.0-28.9, adult V85.24 Active Problem hypothyroidism 244.9 Active Problem Other vitamin B12 deficiency anemia 281.1 Active Problem Allergic rhinitis, cause unspecified 477.9 Active Problem Abdominal pain, left lower quadrant 789.04 Active Problem Generalized anxiety disorder 300.02 Active Problem Infectious colitis, enteritis, and gastroenteritis 009.0 Active Problem Anxiety state, unspecified 300.00 Active Problem Other anxiety states 300.09 Active Problem 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 Active 1 tablet [facility]ol [facility] [address]-87 500 MG/15ML Orally as needed (prn) Active 1 tab [facility] [address]-43 5 MG Orally Once a day Active 1 tablet [facility]am [facility] [address]-55 1 Milligram Orally four times a day Active 1 tablet [facility]rodol [facility] [address]-11 350.0 Milligram Orally three times a day (tid) as needed (prn) Active 1/2 half tablet Cyanocobalamin [facility] [address]-99 1000 MCG/ML intramuscularly monthly February 15, 2014 Aug 14, 2014 Active 1 ml Levothyroxine Sodium [facility] [address]-43 25 MCG Orally Once a day February 15, 2014 Active 1 tablet on an empty stomach in the morning Social History Social History Element Qualifiers Date Reported Tobacco Use: . Status: Never smoker Aug 08, 2014 Do you drink alcohol? . Status: No Aug 08, 2014 Vital Signs Date/Time: Aug 08, 2014 Weight 212.8 lbs Height 71.5 in Temperature 98.6 F Cardiac Monitoring Heart Rate 61 /min Blood Pressure Diastolic 67 mm Hg Blood Pressure Systolic 110 mm Hg Respiratory Rate 20 /min Summary Purpose eClinicalWorks Submission
--- OUTSIDE RECORDS SUMMARY | 2019-01-28 17:46 | XMS REPORT ---
Author Author Charmaine Sutton [facility] eClinicalWorks Address Unknown Phone Unavailable Care Team Providers Care Support Service Tech Name Role Phone Charmaine Sutton CP Unavailable [...] ICD-9 Code Onset Dates Condition Status Assessment Loss of weight 783.21 Active Problem Rotator cuff (capsule) sprain and strain 840.4 Active Assessment Muscle weakness (generalized) 728.87 Active Problem 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 [...] Start Date End Date Status Dosage Carisoprodol [facility] 33790139554 350 Active TAKE 1/2 TABLET BY MOUTH THREE TIMES DAILY NEEDED Aricept [facility] [address]-12 5 MG Orally Once a day Active 1 tablet Omeprazole-Sodium Bicarbonate [facility] [address]-63 20-1100 MG Orally Once a day November 08, 2014 Active 1 capsule on an empty stomach Vitamin B 12 [facility] 72500-00664 100 MCG Orally Active Unknown Tylenol [facility] [address]-75 500 MG/15ML Orally as needed (prn) Active 1 tab Levothyroxine Sodium [facility] [address]-11 25 MCG Orally Once a day February 15, 2014 Active 1 tablet on an empty stomach in the morning Alprazolam [facility] 83303964568 1 Active TAKE 1 TABLET BY MOUTH FOUR TIMES DAILY Aleve [facility] [address]-00 220 MG Orally one in the morning and one in the evening. Active 1 tablet Social History Social History Element Qualifiers Date Reported Tobacco Use: . Status: Never smoker December 11, 2014 Do you drink alcohol? . Status: No December 11, 2014 Family history Qualifier Description Comment Date Reported Father colon cancer December 11, 2014 Vital Signs Date/Time: December 11, 2014 Weight 209.7 lbs Height 71.5 in Temperature 98.5 F Cardiac Monitoring Heart Rate 82 /min Blood Pressure Diastolic 62 mm Hg Blood Pressure Systolic 116 mm Hg Respiratory Rate 20 /min Summary Purpose eClinicalWorks Submission
--- OUTSIDE RECORDS SUMMARY | 2019-01-28 17:46 | XMS REPORT ---
Author Author Mahendra Harden Organization eClinicalWorks Address Unknown Phone Unavailable Care Team Providers Care Heel Shaper Name Role Phone Mahendra Harden CP Unavailable Allergies No Known Allergies Problems Problem Type Condition Code Onset Dates Condition Status Problem Neuropathy G62.9 Active Problem Muscle cramps R25.2 Active Problem Hypothyroidism (acquired) E03.9 Active Problem Memory loss R41.3 Active Assessment Memory loss R41.3 Active Problem Myositis M60.9 Active Problem Anxiety F41.9 Active Medications Medication Code System Code Instructions Start Date End Date Status Dosage Aricept [facility] [address]-77 10 MG BY MOUTH AT BEDTIME Active 1 tablet Results No Known Results Summary Purpose eClinicalWorks Submission
--- OUTSIDE RECORDS SUMMARY | 2019-01-28 17:46 | XMS REPORT ---
Author Charmaine Escobedo [facility] eClinicalWorks Address Unknown Phone Unavailable Care Team Providers Care Station Examiner Name Role Phone Charmaine Sutton Unavailable Allergies, Adverse Reactions, Alerts Substance Reaction Event Type Codeine Info Not Available Drug Allergy Sudafed Info Not Available Drug Allergy Hydrocodone Bitartrate Info Not Available Drug Allergy Cipro Info Not Available Drug Allergy Antihistamine Info Not Available Drug Allergy Aleve Info Not Available Drug Allergy proscar ankle pain Non Drug Allergy Encounters Encounter Location Date Unknown Charmaine Sutton MD Oct 10, 2013 Follow-up for mutiple problems Charmaine Sutton MD February 15, 2014 Problems Problem Type Condition ICD-9 Code Onset Dates Condition Status Assessment 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 Active Assessment BPH - Hypertrophy (benign) of prostate without urinary obstruction and other lower urinary tract symptoms [LUTS] 600.00 Active Assessment Generalized anxiety disorder 300.02 Active Assessment Body Mass Index 28.0-28.9, adult V85.24 Active Assessment Malnutrition of moderate degree 263.0 Active Assessment Loss of weight 783.21 Active Assessment Other vitamin B12 deficiency anemia 281.1 Active Problem Anxiety state, unspecified 300.00 Active Assessment hypothyroidism 244.9 Active Problem Other anxiety states 300.09 Active Assessment 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 Problem Rotator cuff (capsule) sprain and strain 840.4 Active Problem Mixed hyperlipidemia 272.2 Active Problem 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 Active Problem hypothyroidism 244.9 Active Problem Other vitamin B12 deficiency anemia 281.1 Active Problem Muscle weakness (generalized) 728.87 Active Problem Anxiety state, unspecified 300.00 Active Problem 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 Assessment Muscle weakness (generalized) 728.87 Active Problem Loss of weight 783.21 Active Problem Chest pain, other 786.59 Active Problem Malnutrition of moderate degree 263.0 Active Problem Body Mass Index 28.0-28.9, adult V85.24 Active Problem Generalized anxiety disorder 300.02 Active Problem Infectious colitis, enteritis, and gastroenteritis 009.0 Active Problem Diarrhea of presumed infectious origin 009.3 Active Problem BPH - Hypertrophy (benign) of prostate without urinary obstruction and other lower urinary tract symptoms [LUTS] 600.00 Active Problem 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 Problem 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 Problem Allergic rhinitis, cause unspecified 477.9 Active Problem Abdominal pain, left lower quadrant 789.04 Active Medications Medication Code System Code Instructions Start Date End Date Status Dosage Alprazolam [facility] [address]-47 1 Milligram Orally four times a day Active 1 tablet Aricept [facility] [address]-28 5 MG Orally Once a day Active 1 tablet Carisoprodol [facility] [address]-32 350.0 Milligram Orally three times a day (tid) as needed (prn) Active 1/2 half tablet Tylenol [facility] [address]-63 500 MG/15ML Orally three times a day Active 1 tab Cyanocobalamin [facility] [address]-26 1000 MCG/ML intramuscularly monthly February 15, 2014 Aug 14, 2014 Active 1 ml Levothyroxine Sodium [facility] [address]-79 25 MCG Orally Once a day February 15, 2014 Active 1 tablet on an empty stomach in the morning Social History Social History Element Qualifiers Date Reported Tobacco Use: . Status: Never smoker February 15, 2014 Do you drink alcohol? . Status: No February 15, 2014 Vital Signs Date/Time: February 15, 2014 Weight 209.6 lbs Height 71.5 in Temperature 98.5 F Cardiac Monitoring Heart Rate 81 /min Blood Pressure Diastolic 80 mm Hg Blood Pressure Systolic 130 mm Hg Respiratory Rate 20 /min Summary Purpose eClinicalWorks Submission
--- OUTSIDE RECORDS SUMMARY | 2019-01-28 17:46 | XMS REPORT ---
Author Author Mahendra Harden Organization eClinicalWorks Address Unknown Phone Unavailable Care Team Providers Care Medical Coder Name Role Phone Mahendra Harden CP Unavailable [...] Condition Status Assessment Muscle cramps R25.2 Active Assessment Hypothyroidism (acquired) E03.9 Active Problem Neuropathy G62.9 Active Problem Muscle cramps R25.2 Active Problem Hypothyroidism (acquired) E03.9 Active Problem Memory loss R41.3 Active Assessment Neuropathy G62.9 Active Problem Myositis M60.9 Active Problem Anxiety F41.9 Active Medications Medication Code System Code Instructions Start Date End Date Status Dosage Levothyroxine Sodium [facility] 90364621873 25 MCG Active 1 TABLET ONCE A DAY IN THE MORNING BY MOUTH Gabapentin [facility] [address]-04 300 MG Orally twice a day (bid) Oct 08, 2016 Active 1 capsule Alprazolam [facility] [address]-71 1 MG BY MOUTH FOUR TIMES A DAY Active 1 tablet Carisoprodol [facility] [address]-07 350 MG Orally three times a day Active 1/2 tablet as needed Aricept [facility] [address]-00 10 MG BY MOUTH AT BEDTIME Active 1 tablet Vital Signs Date/Time: November 10, 2016 BMI 30.80 Index Weight 224 lbs Height 71.5 in Temperature 98.0 F Cardiac Monitoring Heart Rate 60 /min Blood Pressure Diastolic 54 mm Hg Blood Pressure Systolic 127 mm Hg Results No Known Results Summary Purpose eClinicalWorks Submission
--- OUTSIDE RECORDS SUMMARY | 2019-01-28 17:46 | XMS REPORT ---
Author Author Mahendra Harden Organization eClinicalWorks Address Unknown Phone Unavailable Care Team Providers Care Vp Home Health Name Role Phone Mahendra Harden CP Unavailable [...] Charmaine Sutton MD Oct 10, 2013 Unknown [facility] November 21, 2015 Follow-up for mutiple problems [...] ICD-9 Code Onset Dates Condition Status Assessment Memory loss R41.3 Active Problem Hypothyroidism E03.9 Active Problem Anxiety F41.9 Active Problem Myositis M60.9 Active Assessment Hypothyroidism E03.9 Active Assessment Anxiety F41.9 Active Problem Memory loss R41.3 Active Assessment Myositis M60.9 Active Medications Medication Code System Code Instructions Start Date End Date Status Dosage [facility] [address]-84 25 MCG BY MOUTH ONCE A DAY IN THE MORNING Active 1 tablet [facility]icept [facility] [address]-67 10 MG BY MOUTH AT BEDTIME Active 1 tablet Alprazolam [facility] [address]-41 1 MG BY MOUTH FOUR TIMES A DAY Active 1 tablet Carisoprodol [facility] [address]-10 250 MG Orally Four times a day Active 1 tablet as needed Social History Social History Element Qualifiers Date Reported Do you take Aspirin, or a blood thinner . Yes I do take aspirin/ or a blood thinner CONCHA HUGHES 11/21/2015 1:44:31 PM > November 21, 2015 Tobacco Use: . Are you a: never smoker November 21, 2015 Marital Status: . WidowedACONCHA HUMPHREY 11/21/2015 1:45:15 PM > November 21, 2015 Caffeine intake? . Status: Yes, What type: Coffee, Tea, Soft Drinks November 21, 2015 Do you drink alcohol? . Status: No November 21, 2015 Vital Signs Date/Time: November 21, 2015 Weight 217.9 lbs Height 71.5 in Temperature 98.1 F Cardiac Monitoring Heart Rate 51 /min Blood Pressure Diastolic 61 mm Hg Blood Pressure Systolic 134 mm Hg Summary Purpose eClinicalWorks Submission
--- OUTSIDE RECORDS SUMMARY | 2019-01-28 17:46 | XMS REPORT ---
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 Assessment Generalized anxiety disorder F41.1 Active Problem Anxiety state, unspecified 300.00 Active [...] E03.9 Active Problem Dementia F03.90 Active Assessment Rotator cuff syndrome of shoulder and allied disorders M75.100 Active Problem Rotator cuff (capsule) sprain and strain 840.4 Active Assessment Neck pain M54.2 Active Problem 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 [address]-09 10 mg Orally Once a day Apr 18, 2015 Active 1 tablet at bedtime Aleve [facility] [address]-92 220 MG Orally one in the morning and one in the evening. Active [address] [facility] [address]-63 350 MG Orally three times a day (tid) Apr 18, 2016 Active 1/2 half tablet Levothyroxine Sodium [facility] [address]-15 25 MCG Orally Once a day February 15, 2014 Active 1 tablet on an empty stomach in the morning Alprazolam [facility] [address]-93 1 MG Orally Active take 1 tablet by mouth four times daily Vitamin B 12 [facility] [address] 100 MCG Orally Active Unknown Tylenol [facility] [address]-48 500 MG/15ML Orally as needed (prn) Active 1 tab Social History Social History Element Qualifiers Date Reported Tobacco Use: . Status: Never smoker Oct 21, 2015 Do you drink alcohol? . Status: No Oct 21, 2015 Family history Qualifier Description Comment Date Reported Maternal Grandmother Comment not available Oct 21, 2015 Paternal Grandmother Comment not available Oct 21, 2015 Siblings Comment not available Oct 21, 2015 Maternal Grandfather Comment not available Oct 21, 2015 Father colon cancer Oct 21, 2015 Mother Comment not available Oct 21, 2015 Paternal Grandfather Comment not available Oct 21, 2015 Other: Comment not available Oct 21, 2015 Vital Signs Date/Time: Oct 21, 2015 Weight 220.0 lbs Height 71.5 in Temperature 98.5 F Cardiac Monitoring Heart Rate 59 /min Blood Pressure Diastolic 68 mm Hg Blood Pressure Systolic 129 mm Hg Respiratory Rate 20 /min Summary Purpose eClinicalWorks Submission
--- OUTSIDE RECORDS SUMMARY | 2019-01-28 17:46 | XMS REPORT ---
Author Author Mahendra Harden [facility] eClinicalWorks Address Unknown Phone Unavailable Care Team Providers Care Pt Sitter Name Role Phone Mahendra Harden Unavailable Encounters Encounter Location Date Follow-up for [...] Charmaine Sutton MD Jul 29, 2015 Unknown [facility] Sep 16, 2016 Unknown [facility] Jul 21, 2016 Unknown [facility] Aug 25, 2016 Unknown [facility] November 21, 2015 Unknown [facility] January 17, 2016 Problems Problem Type Condition ICD-9 Code Onset Dates Condition Status Problem Myositis M60.9 Active Problem Hypothyroidism E03.9 Active Problem Muscle cramps R25.2 Active Assessment Anxiety F41.9 Active Problem Anxiety F41.9 Active Problem Memory loss R41.3 Active Medications Medication Code System Code Instructions Start Date End Date Status Dosage Alprazolam [facility] [address]-83 1 MG BY MOUTH FOUR TIMES A [...]
--- NOTE | 2019-01-28 18:00 | NUR ---
DAVE FALCON AT BEDSIDE FOR HAMMOND CATH INSERTION. AT THIS TIME CATH INSERTION UNSUCCESSFUL. PT URINATING AFTER CATHETER WAS REMOVED.
[2019-01-28 18:15] LABS: BILIRUBIN,URINE NEGATIVE (NEGATIVE); CLARITY,URINE SL CLOUDY (CLEAR); COLOR,URINE RED (YELLOW); KETONES,URINE NEGATIVE (NEGATIVE); LEUKOCYTE ESTERASE ,URINE SMALL (NEGATIVE); NITRITE,URINE NEGATIVE (NEGATIVE); PROTEIN,URINE DIPSTICK 2+ (NEGATIVE); URINE UROBILINOGEN 1 mg/dL (0.2 - 1)
[2019-01-28 18:22] LABS: BACTERIA,URINE FEW /HPF; EPITHELIAL CELLS,URINE FEW /LPF; HYALINE CASTS 0-1 (0-1); MUCUS,URINE FEW (RARE); RBC,URINE >50 /HPF (0-5)
[2019-01-28 19:15] VITALS: BP 135/80
== END 2019-01-28 19:18 | disposition home or self-care (01) ==
LOC: ER 17:40
DX: R33.9 Retention of urine, unspecified (principal); N30.91 Cystitis, unspecified with hematuria; N40.0 Benign prostatic hyperplasia without lower urinary tract symptoms; I10 Essential (primary) hypertension; Z85.118 Personal history of other malignant neoplasm of bronchus and lung
CPT/HCPCS: 81001; 87086; 87186; 99284